=== PATIENT | female | born 1975 | race Caucasian/White ===

== ENCOUNTER 2024-05-28 16:57 | Emergency (ER) | payer OTHER ==
[2024-05-28] MEDS ORDERED: ONDANSETRON 4 MG/2 ML VIAL ONE (17:56)
[2024-05-28] MEDS ORDERED: NA CHLORIDE 0.9% 1,000 ML ONE (17:57)
[2024-05-28] MEDS ORDERED: MORPHINE 4 MG/ML SYR ONE (17:57)
[2024-05-28 18:19] LABS: Absolute Basophils 0.1 K/uL (0-0.5); Absolute Eosinophils 0.3 K/uL (0-0.5); Absolute Lymphocytes (CBC) 3.9 K/uL (0.7-4.9); Absolute Monocytes 0.5 K/uL (0.1-1.3); Absolute Neutrophil 4.8 K/uL (1.8-8.0); Eosinophils % 2.9 % (0-4.4); Hemoglobin 12.5 g/dL (12.0-15.0); Lymphocytes % 40.8 % (15.3-44.8); MCHC 33.7 g/dL (32.0-36.0); MCV 85.8 fL (80-100); MPV 7.5 fL (7.6-11.3); Monocytes % 5.4 % (3.3-12.3); Neutrophils % 49.9 % (41.7-73.7); Nucleated Red Blood Cells % 0.2 % (0-0); Platelets 339 thou/uL (152-406); RBC Red Blood Cell Count 4.31 M/uL (3.86-4.86)
[2024-05-28 18:48] LABS: Albumin 3.6 g/dL (3.4-5.0); Albumin/Globulin Ratio 1.1 (1.1-1.8); Anion Gap 7.7 mEq/L (5.0-15.0); Bilirubin Total 0.2 mg/dL (0.2-1.0); Globulin 3.3 g/dL (2.3-3.5); Potassium 3.7 mEq/L (3.5-5.1); Protein, Total 6.9 g/dL (6.4-8.2)
[2024-05-28 19:05] LABS: Specific Gravity 1.027 (1.005-1.030)
[2024-05-28 19:08] LABS: Specific Gravity 1.027 (1.005-1.030); Sqamous Epithelial <5 /HPF (None Seen); Urine Bacteria <20 /HPF (<20); Urine Bilirubin NEGATIVE (Negative); Urine Blood Trace (Negative); Urine Clarity Turbid (Clear); Urine Color Yellow (Yellow); Urine Culture Reflex Order NOT NEEDED; Urine Glucose NEGATIVE (Negative); Urine Ketones TRACE (Negative); Urine Microscopic Reflex YN ORDER UMIC; Urine Mucus Slight /HPF (None Seen); Urine Nitrite NEGATIVE (Negative); Urine Protein TRACE (Negative); Urine RBC <5 /HPF (None Seen); Urine Urobilinogen 1+ (Normal); Urine WBC <5 /HPF (<5); Urine pH 5.5 (5.0-7.0)
--- NOTE | 2024-05-28 19:39 | RAD REPORT ---
EXAM DESCRIPTION: CTAbdomen Pelvis W Contrast - 05/28/2024 7:25 pm CLINICAL HISTORY: Abdominal pain. rectal pain;Abd pain COMPARISON: No comparisons TECHNIQUE: Biphasic CT imaging of the abdomen and pelvis was performed with 100 ml non-ionic IV cont rast. All CT scans are performed using dose optimization technique as appropriate and may include automated exposure control or mA/KV adjustment according to patient size. FINDINGS: The lung bases are clear. The liver demonstrates diffuse fatty infiltration. 6 mm cyst superior aspect right lobe of the liver. Spleen, pancreas, adrenal glands and kidneys are within normal limits. No bowel obstruction, free air, free fluid or abscess. Small fat containing umbilical hernia. The seth endix is normal. No perirectal abnormality. No evidence of significant lymphadenopathy. No suspicious bony findings. IMPRESSION: No acute intra-abdominal or pelvic finding. Prominent fatty liver.
[2024-05-28] MEDS ORDERED: KETOROLAC 30 MG/ML INJ ONE (20:29)
--- NOTE | 2024-05-28 20:31 | ER ---
Nurse's Notes [facility] Name: Alisha Cleveland Age: 48 yrs Sex: Female : 1975 Arrival Date: 05/28/2024 Time: 16:57 Bed 13 Private MD: Diagnosis: Rectal Pain Presentation: 05/28 17:07 Chief complaint: Patient states: Anal fissure X 3 months - Pt saw surgeon to get it ld1 fixed, not scheduled yet. Pt c/o severe pain, denies injury. Coronavirus screen: At this time, the client does not indicate any symptoms associated with coronavirus-19. Ebola Screen: No symptoms or risks identified at this time. Initial Sepsis Screen: Does the patient meet any 2 criteria? No. Patient's initial sepsis screen is negative. Does the patient have a suspected source of infection? No. Patient's initial sepsis screen is negative. Risk Assessment: Do you want to hurt yourself or someone else? Patient reports no desire to harm self or others. Onset of symptoms was May 28, 2024. 17:07 Method Of Arrival: Ambulatory ld1 17:07 Acuity: TEVIN 3 ld1 Triage Assessment: 17:09 General: Appears in no apparent distress. uncomfortable, Behavior is cooperative, ld1 anxious. Pain: Complains of pain in gluteal cleft Pain does not radiate. Pain currently is 4 out of 10 on a pain scale. at worst was 9 out of 10 on a pain scale. Quality of pain is described as sharp, shooting, throbbing, Pain began suddenly, Is continuous. EENT: No signs and/or symptoms were reported regarding the EENT system. Neuro: Level of Consciousness is awake, alert, obeys commands, Oriented to person, place, time, situation, Appropriate for age. Cardiovascular: Capillary refill < 3 seconds Patient's skin is warm and dry. Respiratory: Airway is patent Respiratory effort is even, unlabored. GI: Abdomen is round non-distended. : No signs and/or symptoms were reported regarding the genitourinary system. Derm: No signs and/or symptoms reported regarding the dermatologic system. Musculoskeletal: No signs and/or symptoms reported regarding the musculoskeletal system. 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 - Infectious Disease History:: Denies. - Social history:: Smoking status: Patient denies any tobacco usage or history of. Screenin:12 [facility] ED Fall Risk Assessment (Adult) History of falling in the last 3 months, kc6 including since admission No falls in past 3 months (0 pts) Confusion or Disorientation No (0 pts) Intoxicated or Sedated No (0 pts) Impaired Gait No (0 pts) Mobility Assist Device Used No (0 pt) Altered Elimination No (0 pt) Score/Fall Risk Level 0 - 2 = Low Risk. Abuse screen: Denies threats or abuse. Denies injuries from another. Nutritional screening: No deficits noted. Tuberculosis screening: No symptoms or risk factors identified. Assessment: 18:12 General: Appears in no apparent distress. uncomfortable, well groomed, well developed, kc6 Behavior is calm, cooperative, appropriate for age. Pain: Complains of pain in buttocks Pain currently is 7 out of 10 on a pain scale. Neuro: Level of Consciousness is awake, alert, obeys commands, Oriented to person, place, time, situation, Appropriate for age. Cardiovascular: Capillary refill < 3 seconds. Respiratory: Airway is patent Trachea midline Respiratory effort is even, unlabored, Respiratory pattern is regular, symmetrical. GI: Abdomen is flat, non-distended, Bowel sounds present X 4 quads. Abd is soft and non tender X 4 quads. Reports rectal bleeding, bloody stool, nausea, Patient currently denies abdominal pain, vomiting. : No signs and/or symptoms were reported regarding the genitourinary system. EENT: No signs and/or symptoms were reported regarding the EENT system. Derm: No signs and/or symptoms reported regarding the dermatologic system. Skin is intact, is healthy with good turgor, Skin is pink, warm \T\ dry. Musculoskeletal: No signs and/or symptoms reported regarding the musculoskeletal system. Circulation, motion, and sensation intact. Capillary refill < 3 seconds, Range of motion: intact in all extremities. 19:05 Reassessment: Patient and/or family updated on plan of care and expected duration. Pain rg5 level reassessed. Patient is alert, oriented x 3, equal unlabored respirations, skin warm/dry/pink. 20:45 Reassessment: Patient and/or family updated on plan of care and expected duration. Pain rg5 level reassessed. Patient is alert, oriented x 3, equal unlabored respirations, skin warm/dry/pink. Patient states feeling better. Patient states symptoms have improved. Vital Signs: 17:07 BP 119 / 89; Pulse 97; Resp 18; Temp 97.5(O); Pulse Ox 99% on R/A; Weight 77.11 kg; ld1 Height 5 ft. 4 in. ; Pain 4/10; 18:13 BP 115 / 73; Pulse 80; Resp 16 S; Pulse Ox 100% on R/A; kc6 19:03 BP 115 / 77; Pulse 64; Resp 17; Temp 98; Pulse Ox 99% on R/A; rg5 20:30 BP 120 / 77; Pulse 81; Resp 17; Pulse Ox 99% on R/A; Pain 5/10; rg5 17:07 Body Mass Index 29.18 (77.11 kg, 162.56 cm) ld1 17:07 Pain Scale: Adult ld1 20:30 Pain Scale: Adult rg5 ED Course: 17:00 Patient arrived in ED. mr 17:09 Triage completed. ld1 17:09 Arm band placed on right wrist. ld1 17:15 Jose Pollard PA is PHCP. cp 17:15 Jose Lo MD is Attending Physician. cp 17:16 Nitza Del Cid, RN is Primary Nurse. kc6 18:12 Patient has correct armband on for positive identification. Placed in gown. Bed in low kc6 position. Call light in reach. Side rails up X2. Adult w/ patient. Pulse ox on. NIBP on. Door closed. Noise minimized. Lights dimmed. Warm blanket given. Pillow given. 18:12 Inserted saline lock: 20 gauge in right antecubital area, using aseptic technique. kc6 Blood collected. Flushed with 10 mL NS. 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 kc6 19:26 CT Abd/Pelvis - IV Contrast Only In Process Unspecified. EDMS 20:52 Provided Education on: ffup with GI doctor. rg5 20:53 IV discontinued. rg5 Administered Medications: 18:14 Drug: NS 0.9% IV 1000 ml IV at 1 bolus Per protocol; 1000 mL bolus Route: IV; Rate: 1 kc6 bolus; Site: right antecubital; 20:04 Follow up: Response: No adverse reaction; IV Status: Completed infusion rg5 18:14 Drug: Ondansetron IVP 4 mg IVP once; over 2 minutes Route: IVP; Site: right antecubital;kc6 20:03 Follow up: Response: No adverse reaction rg5 18:14 Drug: morphine IVP or IV 4 mg IVP once over 4 mins Route: IVP; Infused Over: 4 mins; kc6 Site: right antecubital; 19:05 Follow up: Response: No adverse reaction; Pain is decreased rg5 20:34 Drug: Ketorolac IVP 15 mg IVP once Route: IVP; Site: right antecubital; rg5 20:50 Follow up: Response: No adverse reaction; Pain is decreased rg5 Medication: 20:51 VIS not applicable for this client. rg5 Outcome: 20:31 Discharge ordered by . merlyn 20:53 Discharged to home ambulatory, rg5 20:53 Condition: stable 20:53 Discharge instructions given to patient, 20:58 Patient left the ED. rg5 Signatures: Dispatcher [employer] EDNetta Brown Reg Reg mr Page, Corey, PA PA cp Sims, Lauren, RN RN ld1 Nitza Del Cid RN RN kc6 Triston Box RN RN rg5
--- NOTE | 2024-05-28 20:31 | EDPHYS ---
Physician Documentation [facility] Name: Alisha Cleveland Age: 48 yrs Sex: Female : 1975 Arrival Date: 05/28/2024 Time: 16:57 Bed 13 Private MD: ED Physician Jose Lo HPI: 05/28 17:45 This 48 yrs old Female presents to ER via Ambulatory with complaints of Rectal Pain. cp 17:45 The patient presents to the emergency department with pain in the rectal area, that is cp severe. Onset: The symptoms/episode began/occurred 3 month(s) ago. Context: the patient HX of rectal fissure. Associate signs and symptoms: Pertinent positives: abdominal pain in the right lower quadrant, Pertinent negatives: constipation, diarrhea, fever, lower GI bleeding. 17:45 Patient reports she is scheduled for surgery with colorectal surgeon. 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 - Infectious Disease History:: Denies. - Social history:: Smoking status: Patient denies any tobacco usage or history of. ROS: 17:50 Constitutional: Negative for body aches, chills, fever, poor PO intake, cp 17:50 Eyes: Negative for injury, pain, redness, and discharge, cp 17:50 Respiratory: Negative for cough, shortness of breath, wheezing, 17:50 Abdomen/GI: Positive for abdominal pain, rectal pain, Negative for vomiting, diarrhea, constipation, rectal bleeding, 17:50 Neuro: Negative for altered mental status, headache, weakness, 17:50 All other systems are negative, Exam: 17:55 Constitutional: The patient appears in no acute distress, alert, awake, non-toxic, well cp developed, well nourished, uncomfortable, 17:55 Head/Face: Normocephalic, atraumatic. cp 17:55 Eyes: Periorbital structures: appear normal, Conjunctiva: normal, no exudate, no injection, Sclera: no appreciated abnormality, Lids and lashes: appear normal, bilaterally, 17:55 ENT: External ear(s): are unremarkable, Nose: is normal, Mouth: Lips: moist, Oral mucosa: pink and intact, moist, Posterior pharynx: is normal, airway is patent, no erythema, no exudate, 17:55 Chest/axilla: Inspection: normal, 17:55 Cardiovascular: Rate: normal, 17:55 Respiratory: the patient does not display signs of respiratory distress, Respirations: normal, no use of accessory muscles, no retractions, 17:55 Abdomen/GI: Inspection: abdomen appears normal, Bowel sounds: active, all quadrants, Palpation: soft, in all quadrants, mild abdominal tenderness, in the right lower quadrant, Rectal exam: hemorrhoid(s), external, with pain, without inflammation, without thrombosis, tenderness, that is moderate, Vital Signs: 17:07 BP 119 / 89; Pulse 97; Resp 18; Temp 97.5(O); Pulse Ox 99% on R/A; Weight 77.11 kg; ld1 Height 5 ft. 4 in. ; Pain 4/10; 18:13 BP 115 / 73; Pulse 80; Resp 16 S; Pulse Ox 100% on R/A; kc6 19:03 BP 115 / 77; Pulse 64; Resp 17; Temp 98; Pulse Ox 99% on R/A; rg5 20:30 BP 120 / 77; Pulse 81; Resp 17; Pulse Ox 99% on R/A; Pain 5/10; rg5 17:07 Body Mass Index 29.18 (77.11 kg, 162.56 cm) ld1 17:07 Pain Scale: Adult ld1 20:30 Pain Scale: Adult rg5 MDM: 17:15 Patient medically screened. 20:30 Data reviewed: vital signs, nurses notes, lab test result(s), radiologic studies, CT cp scan. 20:30 I considered the following discharge prescriptions or medication management in the emergency department Medications were administered in the Emergency Department. See MAR. Counseling: I had a detailed discussion with the patient and/or guardian regarding the historical points, exam findings, and any diagnostic results supporting the discharge/admit diagnosis, lab results, radiology results, the need for outpatient follow up, for definitive care, a colorectal specialist, to return to the emergency department if symptoms worsen or persist or if there are any questions or concerns that arise at home. Response to treatment: the patient's symptoms have markedly improved after treatment, and as a result, I will discharge patient. 05/28 17:41 Order name: CBC with Diff; Complete Time: 18:29 cp 05/28 19:42 Interpretation: Reviewed. cp 05/28 17:41 Order name: CMP; Complete Time: 19:17 cp 05/28 17:41 Order name: Lipase; Complete Time: 19:17 cp 05/28 17:41 Order name: Test, Urine; Complete Time: 19:17 cp 05/28 17:41 Order name: Urinalysis w/ reflexes; Complete Time: 19:17 cp 05/28 18:30 Order name: CT Abd/Pelvis - IV Contrast Only; Complete Time: 19:42 cp 05/28 17:41 Order name: IV Saline Lock; Complete Time: 18:08 cp 05/28 17:41 Order name: Labs collected and sent; Complete Time: 18:08 cp Administered Medications: 18:14 Drug: NS 0.9% IV 1000 ml IV at 1 bolus Per protocol; 1000 mL bolus Route: IV; Rate: 1 kc6 bolus; Site: right antecubital; 20:04 Follow up: Response: No adverse reaction; IV Status: Completed infusion rg5 18:14 Drug: Ondansetron IVP 4 mg IVP once; over 2 minutes Route: IVP; Site: right antecubital;kc6 20:03 Follow up: Response: No adverse reaction rg5 18:14 Drug: morphine IVP or IV 4 mg IVP once over 4 mins Route: IVP; Infused Over: 4 mins; kc6 Site: right antecubital; 19:05 Follow up: Response: No adverse reaction; Pain is decreased rg5 20:34 Drug: Ketorolac IVP 15 mg IVP once Route: IVP; Site: right antecubital; rg5 20:50 Follow up: Response: No adverse reaction; Pain is decreased rg5 Disposition Summary: 05/28/24 20:31 Discharge Ordered Notes: Location: Home cp Problem: an ongoing problem cp Symptoms: have improved cp Condition: Stable cp Diagnosis - Rectal Pain cp Followup: cp - With: Private Physician - When: 2 - 3 days - Reason: Recheck today's complaints Discharge Instructions: - Discharge Summary Sheet cp - Anal Fissure, Adult cp Forms: - Medication Reconciliation Form cp - Antibiotic Education cp - Prescription Opioid Use cp - Patient Portal Instructions cp - Leadership Thank You Letter cp Signatures: Dispatcher [employer] EDMS Jose Pollard PA PA cp Gabi Posey RN RN ld1 Nitza Del Cid RN RN kc6 Triston Box RN RN rg5 Corrections: (The following items were deleted from the chart) 17:42 17:42 CBC+H.LAB.BRZ ordered. EDMS EDMS 17:42 17:42 COMPREHENSIVE METABOLIC PANEL+C.LAB.BRZ ordered. EDMS EDMS 17:42 17:42 LIPASE+C.LAB.BRZ ordered. EDMS EDMS 17:42 17:42 Test, Urine+UC.LAB.BRZ ordered. EDMS EDMS 17:42 17:42 Urinalysis+U.LAB.BRZ ordered. EDMS EDMS
[2024-05-28 21:41] VITALS: O2SAT 99
[2024-05-28 21:43] VITALS: TEMP 98
[2024-05-28 21:44] VITALS: BP 120/77
== END 2024-05-28 20:58 | disposition home or self-care (01) ==
LOC: ER 16:57
DX: K62.89 Other specified diseases of anus and rectum (principal)
CPT/HCPCS: 96361; 85025; 81001; 36415; 81025; 83690; 80053; 74177; 96375; 96374; 99284; Q9967; J2405; J7030

== ENCOUNTER 2024-05-31 21:40 | Emergency (ER) | payer OTHER ==
[2024-05-31] MEDS ORDERED: HYDROMORPHONE HCL 1 MG/ML INJ ONE (23:13)
[2024-05-31] MEDS ORDERED: NA CHLORIDE 0.9% 1,000 ML ONE (23:14)
[2024-05-31 23:25] LABS: Absolute Basophils 0.1 K/uL (0-0.5); Absolute Eosinophils 0.3 K/uL (0-0.5); Absolute Lymphocytes (CBC) 4.7 K/uL (0.7-4.9); Absolute Monocytes 0.6 K/uL (0.1-1.3); Absolute Neutrophil 4.6 K/uL (1.8-8.0); Basophils % 0.5 % (0-1.3); Hematocrit 38.3 % (36.0-45.0); Hemoglobin 12.8 g/dL (12.0-15.0); Lymphocytes % 45.8 % (15.3-44.8); MCH 28.7 pg (27.0-35.0); MCHC 33.3 g/dL (32.0-36.0); MCV 86.2 fL (80-100); MPV 7.7 fL (7.6-11.3); Monocytes % 5.5 % (3.3-12.3); Neutrophils % 45.2 % (41.7-73.7); Platelets 344 thou/uL (152-406); RBC Red Blood Cell Count 4.44 M/uL (3.86-4.86); Red Cell Distribution Width 15.8 % (12.1-15.2)
[2024-05-31 23:38] LABS: Specific Gravity 1.009 (1.005-1.030)
[2024-05-31 23:39] LABS: Specific Gravity 1.009 (1.005-1.030); Urine Bilirubin NEGATIVE (Negative); Urine Blood Negative (Negative); Urine Clarity Clear (Clear); Urine Color Light-Yellow (Yellow); Urine Glucose NEGATIVE (Negative); Urine Ketones NEGATIVE (Negative); Urine Microscopic Reflex YN NO UMIC; Urine Nitrite NEGATIVE (Negative); Urine Protein NEGATIVE (Negative); Urine Urobilinogen Normal (Normal)
[2024-05-31 23:45] LABS: Albumin 3.6 g/dL (3.4-5.0); Anion Gap 7.5 mEq/L (5.0-15.0); Bilirubin Total 0.2 mg/dL (0.2-1.0); Globulin 3.6 g/dL (2.3-3.5); Potassium 3.5 mEq/L (3.5-5.1); Protein, Total 7.2 g/dL (6.4-8.2)
[2024-06-01] MEDS ORDERED: HYDROCODONE/APAP 7.5/325 MG TAB ONE (00:20)
--- NOTE | 2024-06-01 00:26 | ER ---
Nurse's Notes [facility] Name: Alisha Cleveland Age: 48 yrs Sex: Female : 1975 Arrival Date: 05/31/2024 Time: 21:40 Bed 6 Private MD: Diagnosis: Other hemorrhoids Presentation: 05/31 22:38 Chief complaint: Patient states: I have had an anal fissure for the past 3 months and jb4 the pain is worse today. It feels like something it is tearing my asshole open. Coronavirus screen: At this time, the client does not indicate any symptoms associated with coronavirus-19. Ebola Screen: No symptoms or risks identified at this time. Initial Sepsis Screen: Does the patient meet any 2 criteria? No. Patient's initial sepsis screen is negative. Does the patient have a suspected source of infection? No. Patient's initial sepsis screen is negative. Risk Assessment: Do you want to hurt yourself or someone else? Patient reports no desire to harm self or others. 22:38 Method Of Arrival: Ambulatory jb4 22:38 Acuity: TEVIN 3 jb4 Historical: - Allergies: 22:45 No Known Allergies; jb4 - PMHx: 22:45 None; jb4 - PSHx: 22:45 None; jb4 - Immunization history:: Adult Immunizations up to date. - Infectious Disease History:: Denies. - Social history:: Smoking status: Patient denies any tobacco usage or history of. Screenin:29 [facility] ED Fall Risk Assessment (Adult) History of falling in the last 3 months, cp4 including since admission No falls in past 3 months (0 pts) Confusion or Disorientation No (0 pts) Intoxicated or Sedated No (0 pts) Impaired Gait No (0 pts) Mobility Assist Device Used No (0 pt) Altered Elimination No (0 pt) Score/Fall Risk Level 0 - 2 = Low Risk Oriented to surroundings, Maintained a safe environment, Assessed \T\ reinforced patient's understanding of fall precautions, Hourly rounding (assess needs \T\ fall precautionary measures) done. Abuse screen: Denies threats or abuse. Nutritional screening: No deficits noted. Tuberculosis screening: No symptoms or risk factors identified. Assessment: 23:29 General: Appears distressed, uncomfortable, Behavior is calm, cooperative, appropriate cp4 for age. Pain: Complains of pain in rectal Pain currently is 10 out of 10 on a pain scale. Neuro: Level of Consciousness is awake, alert, obeys commands, Oriented to person, place, time, situation. Cardiovascular: No deficits noted. Respiratory: Airway is patent Respiratory effort is even, unlabored. GI: No signs and/or symptoms were reported involving the gastrointestinal system. : No signs and/or symptoms were reported regarding the genitourinary system. EENT: No signs and/or symptoms were reported regarding the EENT system. Derm: No signs and/or symptoms reported regarding the dermatologic system. Musculoskeletal: No signs and/or symptoms reported regarding the musculoskeletal system. 06/01 00:34 Reassessment: No changes from previously documented assessment. Patient and/or family vc1 updated on plan of care and expected duration. Pain level reassessed. Patient is alert, oriented x 3, equal unlabored respirations, skin warm/dry/pink. Vital Signs: 05/31 22:38 BP 127 / 94; Pulse 88; Resp 16; Temp 98.7(O); Pulse Ox 100% on R/A; Weight 77.11 kg; jb4 Height 5 ft. 4 in. (R); Pain 10; 06/01 00:34 BP 127 / 84; Pulse 75; Resp 16; Pulse Ox 100% ; vc1 05/31 22:38 Body Mass Index 29.18 (77.11 kg, 162.56 cm) jb4 05/31 22:38 Pain Scale: Adult 4 ED Course: 05/31 21:41 Patient arrived in ED. jj6 21:58 Jose Pollard PA is PHCP. cp 21:58 Neal Rascon MD is Attending Physician. cp 22:45 Triage completed. jb4 22:45 Arm band placed on right wrist. jb4 23:16 Initial lab(s) drawn, by ED staff, sent to lab. Inserted saline lock: 22 gauge in right cp4 antecubital area, using aseptic technique. Blood collected. Flushed with 10 mL NS. 23:29 Mandi Moreno is Primary Nurse. cp4 23:29 Bed in low position. Call light in reach. Side rails up X2. 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 vc1 00:38 Provided Education on: continue taking suppositories. vc1 00:38 IV discontinued, intact, bleeding controlled, No redness/swelling at site. Pressure vc1 dressing applied. Administered Medications: 05/31 23:31 Drug: NS 0.9% IV 1000 ml IV at 1 bolus Per protocol; 1000 mL bolus Route: IV; Rate: 1 cp4 bolus; Site: right antecubital; 06/01 00:37 Follow up: IV Status: Completed infusion; IV Intake: 1000ml vc1 05/31 23:31 Drug: HYDROmorphone IVP 1 mg IVP once Route: IVP; Site: right antecubital; cp4 06/01 00:15 Follow up: Response: No adverse reaction; Marked relief of symptoms; Pain is decreased vc1 00:24 Drug: Hydrocodone-Acetaminophen PO (7.5 mg-325 mg) 1 tabs PO once; RASS on ADMIN: cp4 Combtv4, Very Agttd3, Agttd2, Rstlss1, AlertClm0, Drwsy-1, Lt Sdtn-2, Mod Sdtn-3, Dp Sdtn-4, UnArsble-5 Route: PO; 00:35 Follow up: Response: Medication administered at discharge. vc1 Medication: 05/31 23:29 VIS not applicable for this client. cp4 Intake: 06/01 00:37 IV: 1000ml; Total: 1000ml. vc1 Outcome: 00:26 Discharge ordered by MD. cp 00:37 Discharged to home ambulatory, with significant other, vc1 00:37 Condition: good 00:37 Discharge instructions given to patient, Instructed on discharge instructions, follow up and referral plans. medication usage, Demonstrated understanding of instructions, follow-up care, medications, Prescriptions given X 3, 00:38 Patient left the ED. vc1 Signatures: Jose Pollard PA PA cp Bryson, James RN RN jb4 Dora [id number] Christen Judge RN RN vc1 Mandi Moreno cp4
--- NOTE | 2024-06-01 00:26 | EDPHYS ---
Physician Documentation [facility] Name: Alisha Cleveland Age: 48 yrs Sex: Female : 1975 Arrival Date: 05/31/2024 Time: 21:40 Bed 6 Private MD: ED Physician Neal Rascon HPI: 05/31 22:25 This 48 yrs old Female presents to ER via Ambulatory with complaints of Hemorrhoids, PT cp is having severe rectal pain. 22:25 The patient presents to the emergency department with pain in the rectal area, that is cp severe. Onset: The symptoms/episode began/occurred 3 month(s) ago, and became worse today. 22:25 Context: the patient HX of anal fissure and patient reports having surgery scheduled cp with colorectal surgeon. 22:25 Associate signs and symptoms: Pertinent negatives: abdominal pain, constipation, cp diarrhea, fever, lower GI bleeding, vomiting. Historical: - Allergies: 22:45 No Known Allergies; jb4 - PMHx: 22:45 None; jb4 - PSHx: 22:45 None; jb4 - Immunization history:: Adult Immunizations up to date. - Infectious Disease History:: Denies. - Social history:: Smoking status: Patient denies any tobacco usage or history of. ROS: 22:30 Constitutional: Negative for body aches, chills, fever, poor PO intake, cp 22:30 Eyes: Negative for injury, pain, redness, and discharge, cp 22:30 Cardiovascular: Negative for chest pain, palpitations, 22:30 Respiratory: Negative for cough, shortness of breath, wheezing, 22:30 Abdomen/GI: Positive for rectal pain, Negative for abdominal pain, vomiting, diarrhea, constipation, black/tarry stool, rectal bleeding, 22:30 : Negative for urinary symptoms, 22:30 All other systems are negative, Exam: 22:35 Constitutional: The patient appears in no acute distress, alert, awake, non-toxic, well cp developed, well nourished, uncomfortable, 22:35 Head/Face: Normocephalic, atraumatic. cp 22:35 Eyes: Periorbital structures: appear normal, Conjunctiva: normal, Sclera: no appreciated abnormality, Lids and lashes: appear normal, bilaterally, 22:35 ENT: External ear(s): are unremarkable, Nose: is normal, Mouth: Lips: moist, Oral mucosa: pink and intact, moist, Posterior pharynx: Airway: no evidence of obstruction, patent, 22:35 Chest/axilla: Inspection: normal, 22:35 Cardiovascular: Rate: normal, Rhythm: regular, 22:35 Respiratory: the patient does not display signs of respiratory distress, Respirations: normal, no use of accessory muscles, no retractions, labored breathing, is not present, Breath sounds: are clear throughout, no decreased breath sounds, no stridor, no wheezing, 22:35 Abdomen/GI: Inspection: abdomen appears normal, Palpation: abdomen is soft and non-tender, in all quadrants, 22:35 : Rectal exam: hemorrhoid(s), external, inflammed, painful, no active bleeding and no thrombus noted, Vital Signs: 22:38 BP 127 / 94; Pulse 88; Resp 16; Temp 98.7(O); Pulse Ox 100% on R/A; Weight 77.11 kg; jb4 Height 5 ft. 4 in. (R); Pain 10/10; 08 00:34 BP 127 / 84; Pulse 75; Resp 16; Pulse Ox 100% ; vc1 0818 22:38 Body Mass Index 29.18 (77.11 kg, 162.56 cm) jb4 05/31 22:38 Pain Scale: Adult jb4 MDM: 05/31 22:31 Patient medically screened. cp 06/01 00:25 Data reviewed: vital signs, nurses notes, lab test result(s), and as a result, I will cp discharge patient. 00:25 Differential diagnosis: hemorrhoids, fissure, abscess, pilonidal cyst. I considered the cp following discharge prescriptions or medication management in the emergency department Medications were administered in the Emergency Department. See MAR. Counseling: I had a detailed discussion with the patient and/or guardian regarding the historical points, exam findings, and any diagnostic results supporting the discharge/admit diagnosis, lab results, the need for outpatient follow up, colorectal surgery, to return to the emergency department if symptoms worsen or persist or if there are any questions or concerns that arise at home. Response to treatment: the patient's symptoms have markedly improved after treatment, and as a result, I will discharge patient. 05/31 22:22 Order name: CBC with Diff; Complete Time: 23:50 cp 05/31 22:22 Order name: CMP; Complete Time: 23:50 cp 05/31 22:22 Order name: Lipase; Complete Time: 23:50 cp 05/31 22:22 Order name: Test, Urine; Complete Time: 23:50 cp 05/31 22:22 Order name: Urinalysis w/ reflexes; Complete Time: 23:50 cp 05/31 22:22 Order name: Lactate w/ 2H reflex if indic.; Complete Time: 23:50 cp 05/31 22:22 Order name: IV Saline Lock; Complete Time: 23:16 cp 05/31 22:22 Order name: Labs collected and sent; Complete Time: 23:16 cp Administered Medications: 05/31 23:31 Drug: NS 0.9% IV 1000 ml IV at 1 bolus Per protocol; 1000 mL bolus Route: IV; Rate: 1 cp4 bolus; Site: right antecubital; 06/01 00:37 Follow up: IV Status: Completed infusion; IV Intake: 1000ml vc1 05/31 23:31 Drug: HYDROmorphone IVP 1 mg IVP once Route: IVP; Site: right antecubital; cp4 06/01 00:15 Follow up: Response: No adverse reaction; Marked relief of symptoms; Pain is decreased vc1 00:24 Drug: Hydrocodone-Acetaminophen PO (7.5 mg-325 mg) 1 tabs PO once; RASS on ADMIN: cp4 Combtv4, Very Agttd3, Agttd2, Rstlss1, AlertClm0, Drwsy-1, Lt Sdtn-2, Mod Sdtn-3, Dp Sdtn-4, UnArsble-5 Route: PO; 00:35 Follow up: Response: Medication administered at discharge. vc1 Disposition Summary: 06/01/24 00:26 Discharge Ordered Notes: Location: Home cp Problem: an ongoing problem cp Symptoms: have improved cp Condition: Stable cp Diagnosis - Other hemorrhoids cp Followup: cp - With: Private Physician - When: 2 - 3 days - Reason: Recheck today's complaints Discharge Instructions: - Discharge Summary Sheet cp - High-Fiber Eating Plan cp - Hemorrhoids cp - Surgical Procedures for Hemorrhoids cp Forms: - Medication Reconciliation Form cp - Antibiotic Education cp - Prescription Opioid Use cp - Patient Portal Instructions cp - Leadership Thank You Letter cp Prescriptions: - acetaminophen-codeine 300-30 mg Oral tablet - take 2 tablet ORAL route 2-3 times daily; 12 tablet; Refills: 0, Product cp Selection Permitted - Cipro 500 mg Oral Tablet - take 1 tablet ORAL route every 12 hours for 10 days; 20 tablet; Refills: 0, cp Product Selection Permitted - Metronidazole 500 mg Oral Tablet - take 1 tablet ORAL route every 8 hours; 30 tablet; Refills: 0, Product cp Selection Permitted Addendum: 06/02/2024 06:58 Co-signature as Attending Physician, Neal Rascon MD I reviewed the patient's care r n provided by the Advanced Practice Provider and agree with the diagnosis and treatment plan. Signatures: Dispatcher [employer] EDMS Neal Rascon MD MD rn Jose Pollard PA PA cp Bryson, James RN RN jb4 Mandi Moreno cp4 Christen Judge RN vc1 Corrections: (The following items were deleted from the chart) 05/31 22:23 22:23 CBC+H.LAB.BRZ ordered. EDMS EDMS 22:23 22:23 COMPREHENSIVE METABOLIC PANEL+C.LAB.BRZ ordered. EDMS EDMS 22:23 22:23 LIPASE+C.LAB.BRZ ordered. EDMS EDMS 22:23 22:23 Test, Urine+UC.LAB.BRZ ordered. EDMS EDMS 22:23 22:23 Urinalysis+U.LAB.BRZ ordered. EDMS EDMS 22:23 22:23 LACTATE+C.LAB.BRZ ordered. EDMS EDMS 06/01 21:18 05/31 22:25 Onset: The symptoms/episode began/occurred 3 month(s) ago, cp cp
[2024-06-01 00:56] VITALS: TEMP 98.7; O2SAT 100
[2024-06-01 01:02] VITALS: BP 127/84
== END 2024-06-01 00:38 | disposition home or self-care (01) ==
LOC: ER 21:40
DX: K64.8 Other hemorrhoids (principal)
CPT/HCPCS: 85025; 36415; 81025; 83605; 81003; 83690; 80053; J1170; J7030

== ENCOUNTER 2024-06-16 22:13 | Emergency (ER) | payer OTHER ==
[2024-06-17] MEDS ORDERED: FAMOTIDINE 20 MG/2 ML VIAL IV ONE (00:58)
[2024-06-17] MEDS ORDERED: ONDANSETRON 4 MG/2 ML VIAL ONE (00:58)
[2024-06-17] MEDS ORDERED: MORPHINE 4 MG/ML SYR ONE (00:58)
[2024-06-17] MEDS ORDERED: NA CHLORIDE 0.9% 1,000 ML ONE (00:59)
[2024-06-17 01:03] LABS: Absolute Basophils 0.1 K/uL (0-0.5); Absolute Eosinophils 0.3 K/uL (0-0.5); Absolute Lymphocytes (CBC) 4.4 K/uL (0.7-4.9); Absolute Monocytes 0.7 K/uL (0.1-1.3); Absolute Neutrophil 5.6 K/uL (1.8-8.0); Basophils % 0.7 % (0-1.3); Hemoglobin 12.3 g/dL (12.0-15.0); Lymphocytes % 39.7 % (15.3-44.8); MCH 28.7 pg (27.0-35.0); MCHC 33.2 g/dL (32.0-36.0); MCV 86.6 fL (80-100); MPV 7.7 fL (7.6-11.3); Monocytes % 6.1 % (3.3-12.3); Neutrophils % 50.5 % (41.7-73.7); Platelets 273 thou/uL (152-406); RBC Red Blood Cell Count 4.28 M/uL (3.86-4.86); Red Cell Distribution Width 15.5 % (12.1-15.2)
[2024-06-17 01:21] LABS: Specific Gravity 1.008 (1.005-1.030); Sqamous Epithelial <5 /HPF (None Seen); Urine Bacteria <20 /HPF (<20); Urine Bilirubin NEGATIVE (Negative); Urine Blood Negative (Negative); Urine Clarity Extremely Turbid (Clear); Urine Color Light-Yellow (Yellow); Urine Culture Reflex Order NOT NEEDED; Urine Glucose NEGATIVE (Negative); Urine Ketones NEGATIVE (Negative); Urine Microscopic Reflex YN ORDER UMIC; Urine Mucus Slight /HPF (None Seen); Urine Nitrite NEGATIVE (Negative); Urine Protein NEGATIVE (Negative); Urine RBC <5 /HPF (None Seen); Urine Urobilinogen Normal (Normal); Urine WBC <5 /HPF (<5); Urine pH 6.5 (5.0-7.0)
[2024-06-17 01:27] LABS: ALT/SGPT 21 U/L (13-56); Albumin 3.3 g/dL (3.4-5.0); Alkaline Phosphatase 50 U/L (45-117); BUN Blood Urea Nitrogen 9 mg/dL (7-18); Bicarbonate 28 mEq/L (21-32); Bilirubin Total 0.2 mg/dL (0.2-1.0); Globulin 3.2 g/dL (2.3-3.5); Glomerular Filtration Rate 103 ml/min (=/>90); Glucose Level 104 mg/dL (74-106); Lipase 95 U/L (13-75); Protein, Total 6.5 g/dL (6.4-8.2); Sodium Level 138 mEq/L (136-145)
[2024-06-17 01:36] LABS: AST/SGOT < 10 U/L (15-37)
--- NOTE | 2024-06-17 03:46 | ER ---
Nurse's Notes [facility] Name: Alisha Cleveland Age: 48 yrs Sex: Female : 1975 Arrival Date: 06/16/2024 Time: 22:13 Bed 4 Private MD: Diagnosis: Abdominal pain, unspecified;Abdominal tenderness-rectal pain Presentation: 06/16 23:12 Chief complaint: Patient states: Anal fissure x 4 months, on June 04 had Botox jb4 injection to anal area. Has had a fever and pain x 36hrs. Unable to sit and having for severe pain. Coronavirus screen: Vaccine status: Patient reports being unvaccinated. Ebola Screen: Patient negative for fever greater than or equal to 101.5 degrees Fahrenheit, and additional compatible Ebola Virus Disease symptoms. Initial Sepsis Screen: Does the patient meet any 2 criteria? No. Patient's initial sepsis screen is negative. Does the patient have a suspected source of infection?. Risk Assessment: Do you want to hurt yourself or someone else?. Onset of symptoms. Onset of symptoms was June 13, 2024. 23:12 Method Of Arrival: Ambulatory [facility] 23:12 Acuity: TEVIN 3 jb4 Triage Assessment: 06/17 03:55 General: Appears in no apparent distress. comfortable, Behavior is calm, cooperative, bm8 appropriate for age. GI: Reports lower abdominal pain, upper abdominal pain. BACKGROUND CHECK COORDINATOR: 03:56 LMP N/A - Hysterectomy, Not bm8 Historical: - Allergies: 06/16 23:19 No Known Allergies; jb4 - Home Meds: 23:19 Cipro 500 mg Oral tablet 1 tab 2 times per day [Active]; Ozempic 2 mg/dose (8 mg/3 mL) jb4 subcutaneous Pen Injector 2 mg every week [Active]; Adipex-P 37.5 mg oral tablet 1 tab daily [Active]; - Immunization history:: Adult Immunizations unknown. - Infectious Disease History:: Denies. - Social history:: Smoking status: unknown. Screenin/04 01:09 [facility] ED Fall Risk Assessment (Adult) History of falling in the last 3 months, bm8 including since admission No falls in past 3 months (0 pts) Confusion or Disorientation No (0 pts) Intoxicated or Sedated No (0 pts) Impaired Gait No (0 pts) Mobility Assist Device Used No (0 pt) Altered Elimination No (0 pt) Score/Fall Risk Level 0 - 2 = Low Risk Oriented to surroundings, Maintained a safe environment, Educated pt \T\ family on fall prevention, incl call for assistance when getting out of bed, Assessed \T\ reinforced patient's understanding of fall precautions, Hourly rounding (assess needs \T\ fall precautionary measures) done, Used ambulatory aids as needed (educated on \T\ assisted with), Used gait belt as appropriate. Abuse screen: Denies threats or abuse. Nutritional screening: No deficits noted. Tuberculosis screening: No symptoms or risk factors identified. Assessment: 01:09 Reassessment: Patient and/or family updated on plan of care and expected duration. Pain bm8 level reassessed. Patient is alert, oriented x 3, equal unlabored respirations, skin warm/dry/pink. Pain: Complains of pain in right lower quadrant and right upper quadrant and rectum Pain currently is 6 out of 10 on a pain scale. Neuro: No deficits noted. Level of Consciousness is awake, alert, obeys commands, Oriented to person, place, time, situation, Appropriate for age. Cardiovascular: Denies chest pain, Capillary refill < 3 seconds Patient's skin is warm and dry. Respiratory: Airway is patent Respiratory effort is even, labored, Respiratory pattern is regular, symmetrical, Breath sounds are clear bilaterally. GI: Abdomen is flat, non-distended, Abdomen is tender to palpation in right upper quadrant and right lower quadrant Reports lower abdominal pain, upper abdominal pain, nausea. : No signs and/or symptoms were reported regarding the genitourinary system. EENT: No signs and/or symptoms were reported regarding the EENT system. Derm: No signs and/or symptoms reported regarding the dermatologic system. Musculoskeletal: No signs and/or symptoms reported regarding the musculoskeletal system. 03:10 Reassessment: Patient appears in no apparent distress at this time. Patient and/or bm8 family updated on plan of care and expected duration. Pain level reassessed. Patient is alert, oriented x 3, equal unlabored respirations, skin warm/dry/pink. pt reports that pain and nausea are starting to come back. informed and awaitng new orders. 03:54 Reassessment: Patient appears in no apparent distress at this time. Patient and/or bm8 family updated on plan of care and expected duration. Pain level reassessed. Patient is alert, oriented x 3, equal unlabored respirations, skin warm/dry/pink. Patient states feeling better. Patient states symptoms have improved. Pain: Complains of pain in rectum Pain currently is 2 out of 10 on a pain scale. Vital Signs: 06/16 23:12 BP 136 / 75; Pulse 77; Resp 18; Temp 98.9; Pulse Ox 100% ; Weight 78.02 kg; Height 5 jb4 ft. 4 in. ; Pain /; 06/17 01:09 BP 119 / 72; Pulse 76; Resp 17; Temp 97.9; Pulse Ox 100% ; Pain 6/10; bm8 03:10 BP 115 / 85; Pulse 82; Resp 17; Temp 97.8; Pulse Ox 100% ; Pain 6/10; bm8 03:54 BP 123 / 77; Pulse 84; Resp 16; Temp 97.9; Pulse Ox 100% ; Pain 2/10; bm8 06/16 23:12 Body Mass Index 29.52 (78.02 kg, 162.56 cm) [facility] 06/16 23:12 Pain Scale: Adult 4 06/17 01:09 Pain Scale: Adult bm8 03:10 Pain Scale: Adult bm8 03:54 Pain Scale: Adult bm8 Oniel Coma Score: 01:09 Eye Response: spontaneous(4). Motor Response: obeys commands(6). Verbal Response: bm8 oriented(5). Total: 15. 03:10 Eye Response: spontaneous(4). Motor Response: obeys commands(6). Verbal Response: bm8 oriented(5). Total: 15. 03:54 Eye Response: spontaneous(4). Motor Response: obeys commands(6). Verbal Response: bm8 oriented(5). Total: 15. ED Course: 06/16 22:15 Patient arrived in ED. mr 23:18 Triage completed. jb4 23:35 Jose Lo MD is Attending Physician. [facility] 06/17 00:46 Marck Choi, RN is Primary Nurse. bm8 01:09 Patient has correct armband on for positive identification. Placed in gown. Bed in low bm8 position. Call light in reach. Side rails up X 1. Adult w/ patient. Client placed on continuous cardiac and pulse oximetry monitoring. NIBP monitoring applied. pot room tapper on. Pulse ox on. NIBP on. Door closed. Noise minimized. Warm blanket given. Pillow given. Verbal reassurance given. Head of bed elevated. 01:09 No provider procedures requiring assistance completed. Initial lab(s) drawn, by ashlee contreras sent to lab. Urine collected: clean catch specimen, cloudy. Inserted saline lock: 20 gauge in right antecubital area, using aseptic technique. Blood collected. Flushed with 10 mL NS. Patient maintains SpO2 saturation greater than 95% on room air. 01:10 Chest Single View XRAY In Process Unspecified. EDMS 02:03 CT Abd/Pelvis - IV Contrast Only In Process Unspecified. EDMS 03:54 Provided Education on: post er care. bm8 03:54 IV discontinued, intact, bleeding controlled, No redness/swelling at site. Pressure bm8 dressing applied. 03:56 Arm band placed on. bm8 Administered Medications: 01:08 Drug: NS 0.9% IV 1000 ml IV at 1 bolus Per protocol; 1000 mL bolus Route: IV; Rate: 1 bm8 bolus; Site: right antecubital; 03:56 Follow up: Response: No adverse reaction; IV Status: Completed infusion; IV Intake: bm8 1000ml 01:08 Drug: Famotidine IVP 20 mg IVP once; dilute with 10 mL 0.9% NaCl; give over 2 minutes bm8 Route: IVP; Site: right antecubital; 03:56 Follow up: Response: No adverse reaction bm8 01:08 Drug: Ondansetron IVP 4 mg IVP once; over 2 minutes Route: IVP; Site: right antecubital;bm8 03:57 Follow up: Response: No adverse reaction bm8 01:08 Drug: morphine IVP or IV 4 mg IVP once over 4 mins Route: IVP; Infused Over: 4 mins; bm8 Site: right antecubital; 03:57 Follow up: Response: No adverse reaction bm8 Medication: 01:09 VIS not applicable for this client. bm8 Intake: 03:56 IV: 1000ml; Total: 1000ml. bm8 Outcome: 03:46 Discharge ordered by MD. oconnor 03:54 Discharged to home ambulatory, bm8 03:54 Condition: stable 03:54 Discharge instructions given to patient, family, Instructed on discharge instructions, follow up and referral plans. no drinking with medication, no driving heavy equipment, medication usage, safety practices, Demonstrated understanding of instructions, follow-up care, medications, Prescriptions given X 3, 03:57 Patient left the ED. bm8 Signatures: Dispatcher [employer] EDJose Wilson MD MD cha Rivera, Mary, Reg Reg mr Randell Laws, RN RN jb4 Marck Choi RN RN bm8
--- NOTE | 2024-06-17 03:47 | EDPHYS ---
Physician Documentation [facility] Name: Alisha Cleveland Age: 48 yrs Sex: Female : 1975 Arrival Date: 06/16/2024 Time: 22:13 Bed 4 Private MD: GONZÁLEZ Physician Jose Lo HPI: 06/17 00:29 This 48 yrs old Female presents to ER via Ambulatory with complaints of Post anastasia Surgical Pain, Nausea, Fever. 00:29 The patient presents to the emergency department with nausea, abdominal pain, of the anastasia right upper quadrant and right lower quadrant. Onset: The symptoms/episode began/occurred 2 day(s) ago. Possible causes: unknown. The symptoms are aggravated by pressure, The symptoms are alleviated by nothing. Associated signs and symptoms: Pertinent positives: abdominal pain. Severity of symptoms: At their worst the symptoms were mild moderate in the emergency department the symptoms are unchanged. 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 - Infectious Disease History:: Denies. - Social history:: Smoking status: unknown. ROS: 06/17 00:40 Constitutional: Negative for fever, chills, and weight loss, Eyes: Negative for injury, anastasia pain, redness, and discharge, ENT: Negative for injury, pain, and discharge, Neck: Negative for injury, pain, and swelling, Cardiovascular: Negative for chest pain, palpitations, and edema, Respiratory: Negative for shortness of breath, cough, wheezing, and pleuritic chest pain, Back: Negative for injury and pain, : Negative for injury, bleeding, discharge, and swelling, MS/Extremity: Negative for injury and deformity, Skin: Negative for injury, rash, and discoloration, Neuro: Negative for headache, weakness, numbness, tingling, and seizure, Psych: Negative for depression, anxiety, suicide ideation, homicidal ideation, and hallucinations, Allergy/Immunology: Negative for hives, rash, and allergies, Endocrine: Negative for neck swelling, polydipsia, polyuria, polyphagia, and marked weight changes, Hematologic/Lymphatic: Negative for swollen nodes, abnormal bleeding, and unusual bruising, Abdomen/GI: Positive for abdominal pain, abdominal cramps, of the right upper quadrant and right lower quadrant, Exam: 00:40 Constitutional: This is a well developed, well nourished patient who is awake, alert, anastasia and in no acute distress. Head/Face: Normocephalic, atraumatic. Eyes: Pupils equal round and reactive to light, extra-ocular motions intact. Lids and lashes normal. Conjunctiva and sclera are non-icteric and not injected. Cornea within normal limits. Periorbital areas with no swelling, redness, or edema. ENT: Nares patent. No nasal discharge, no septal abnormalities noted. Tympanic membranes are normal and external auditory canals are clear. Oropharynx with no redness, swelling, or masses, exudates, or evidence of obstruction, uvula midline. Mucous membranes moist. Neck: Trachea midline, no thyromegaly or masses palpated, and no cervical lymphadenopathy. Supple, full range of motion without nuchal rigidity, or vertebral point tenderness. No Meningismus. Chest/axilla: Normal chest wall appearance and motion. Nontender with no deformity. No lesions are appreciated. Cardiovascular: Regular rate and rhythm with a normal S1 and S2. No gallops, murmurs, or rubs. Normal PMI, no JVD. No pulse deficits. Respiratory: Lungs have equal breath sounds bilaterally, clear to auscultation and percussion. No rales, rhonchi or wheezes noted. No increased work of breathing, no retractions or nasal flaring. Back: No spinal tenderness. No costovertebral tenderness. Full range of motion. Pelvic Exam: Normal external genitalia. Speculum exam with closed cervical os, no discharge or bleeding noted. Bimanual exam with normal adnexa, no adnexal or cervical motion tenderness. Normal uterus. Female : Normal external genitalia. Skin: Warm, dry with normal turgor. Normal color with no rashes, no lesions, and no evidence of cellulitis. MS/ Extremity: Pulses equal, no cyanosis. Neurovascular intact. Full, normal range of motion. Neuro: Awake and alert, GCS 15, oriented to person, place, time, and situation. Cranial nerves II-XII grossly intact. Motor strength 5/5 in all extremities. Sensory grossly intact. Cerebellar exam normal. Normal gait. Psych: Awake, alert, with orientation to person, place and time. Behavior, mood, and affect are within normal limits. 00:40 Abdomen/GI: Inspection: abdomen appears normal, Bowel sounds: normal, Palpation: mild abdominal tenderness, in the right upper quadrant and right lower quadrant, Liver: no appreciated palpable abnormalities, Hernia: not appreciated, 00:40 Musculoskeletal/extremity: ROM: no acute changes, intact in all extremities, Circulation is intact in all extremities. Sensation intact. Compartment Syndrome exam of affected extremity: is normal. Joints: All joints appear normal with full range of motion. Weight bearing: able to fully bear weight, Tendon exam: specific tendon testing normal through active and passive range of motion DVT Exam: No signs of deep vein thrombosis. no pain, no swelling, no tenderness, negative Homans' sign noted on exam, no appreciated bluish discoloration, no erythema, no increased warmth, Vital Signs: 06/16 23:12 BP 136 / 75; Pulse 77; Resp 18; Temp 98.9; Pulse Ox 100% ; Weight 78.02 kg; Height 5 jb4 ft. 4 in. ; Pain /; 06/17 01:09 BP 119 / 72; Pulse 76; Resp 17; Temp 97.9; Pulse Ox 100% ; Pain 6/10; bm8 03:10 BP 115 / 85; Pulse 82; Resp 17; Temp 97.8; Pulse Ox 100% ; Pain 6/10; bm8 03:54 BP 123 / 77; Pulse 84; Resp 16; Temp 97.9; Pulse Ox 100% ; Pain 2/10; bm8 06/16 23:12 Body Mass Index 29.52 (78.02 kg, 162.56 cm) jb4 06/16 23:12 Pain Scale: Adult jb4 06/17 01:09 Pain Scale: Adult bm8 03:10 Pain Scale: Adult bm8 03:54 Pain Scale: Adult bm8 [place] Coma Score: 01:09 Eye Response: spontaneous(4). Motor Response: obeys commands(6). Verbal Response: bm8 oriented(5). Total: 15. 03:10 Eye Response: spontaneous(4). Motor Response: obeys commands(6). Verbal Response: bm8 oriented(5). Total: 15. 03:54 Eye Response: spontaneous(4). Motor Response: obeys commands(6). Verbal Response: bm8 oriented(5). Total: 15. MDM: 06/16 23:35 Patient medically screened. [facility] 06/17 00:41 Differential diagnosis: Nonspecific abd pain, gastritis, cholecystitis, pancreatitis, anastasia appendicitis, diverticulitis, viral gastroenteritis, gastroenteritis. Data reviewed: vital signs, nurses notes, lab test result(s), radiologic studies, CT scan, plain films. Consideration of Admission/Observation Escalation of care including admission/observation considered. I considered the following discharge prescriptions or medication management in the emergency department Medications were administered in the Emergency Department. See MAR. Test considered but Not performed: Ultrasound no abd usg. Historians other than the Patient: Family Member: family well informed. Care significantly affected by the following chronic conditions: Obesity, anal fissures, sp botox. 06/17 00:39 Order name: CBC with Diff; Complete Time: 01:34 [facility] 06/17 00:39 Order name: CMP; Complete Time: 02:37 [facility] 06/17 00:39 Order name: Lipase; Complete Time: 02:37 [facility] 06/17 00:39 Order name: Urinalysis w/ reflexes; Complete Time: 01:34 [facility] 06/17 00:39 Order name: CT Abd/Pelvis - IV Contrast Only [facility] 06/17 00:39 Order name: Chest Single View XRAY [facility] 06/17 00:39 Order name: IV Saline Lock; Complete Time: 01:09 [facility] 06/17 00:39 Order name: Labs collected and sent; Complete Time: 01:09 [facility] Administered Medications: 01:08 Drug: NS 0.9% IV 1000 ml IV at 1 bolus Per protocol; 1000 mL bolus Route: IV; Rate: 1 bm8 bolus; Site: right antecubital; 03:56 Follow up: Response: No adverse reaction; IV Status: Completed infusion; IV Intake: bm8 1000ml 01:08 Drug: Famotidine IVP 20 mg IVP once; dilute with 10 mL 0.9% NaCl; give over 2 minutes bm8 Route: IVP; Site: right antecubital; 03:56 Follow up: Response: No adverse reaction bm8 01:08 Drug: Ondansetron IVP 4 mg IVP once; over 2 minutes Route: IVP; Site: right antecubital;bm8 03:57 Follow up: Response: No adverse reaction bm8 01:08 Drug: morphine IVP or IV 4 mg IVP once over 4 mins Route: IVP; Infused Over: 4 mins; bm8 Site: right antecubital; 03:57 Follow up: Response: No adverse reaction bm8 Disposition Summary: 06/17/24 03:46 Discharge Ordered Notes: Location: Home anastasia Problem: new anastasia Symptoms: have improved anastasia Condition: Stable anastasia Diagnosis - Abdominal pain, unspecified anastasia - Abdominal tenderness - rectal pain anastasia Followup: anastasia - With: Private Physician - When: 2 - 3 days - Reason: Recheck today's complaints, Continuance of care, Re-evaluation by your physician Discharge Instructions: - Discharge Summary Sheet anastasia - Abdominal Pain, Adult anastasia - Flank Pain, Adult anastasia - Abdominal Pain, Adult, [id number] [facility] Forms: - Medication Reconciliation Form [facility] - Antibiotic Education anastasia - Prescription Opioid Use anastasia - Patient Portal Instructions [facility] - Leadership Thank You Letter [facility] Prescriptions: - Zofran 4 mg Oral Tablet - take 1 tablet ORAL route every 12 hours As needed; 20 tablet; Refills: 0, [facility] Product Selection Permitted - Cipro 500 mg Oral tablet - take 1 tablet ORAL route every 12 hours for 7 days; 10 tablet; Refills: 0, [facility] Product Selection Permitted - dicyclomine 20 mg Oral tablet - take 1 tablet ORAL route 4 times per day; 28 tablet; Refills: 0, Product [facility] Selection Permitted Signatures: Dispatcher [employer] EDJose Wilson MD MD cha Bryson, James, RN RN jb4 Marck Choi, RN RN bm8 Corrections: (The following items were deleted from the chart) 00:39 00:39 Abdomen Pelvis W Con+CT.RAD.BRZ ordered. EDMS EDMS 00:39 00:39 Chest Single View+RAD.RAD.BRZ ordered. EDMS EDMS
[2024-06-17 04:45] VITALS: O2SAT 100
[2024-06-17 04:50] VITALS: BP 123/77; TEMP 97.9
--- NOTE | 2024-06-17 15:47 | RAD REPORT ---
EXAM DESCRIPTION: CT ABDOMEN PELVIS WITH IV CONTRAST CLINICAL HISTORY: Abdominal pain COMPARISON: CT abdomen and pelvis 05/28/2024 TECHNIQUE: CT images of the abdomen and pelvis obtained following adminstration of intravenous contr ast. Multiplanar reformats were provided. Dose-optimization techniques such as automated exposure con trol, iterative reconstruction, and mA and/or kV adjustment for patient size was utilized for this ex amination. FINDINGS: LOWER CHEST: Unremarkable. LIVER: Small 5 mm ovoid hypoattenuating structure in right hepatic lobe is too small to characterize and possibly a cyst. The liver is prominent in size with fatty change. BILIARY: Unremarkable. PANCREAS: Unremarkable. SPLEEN: Unremarkable. ADRENALS: Unremarkable. KIDNEYS/URETERS: Unremarkable. BOWEL/STOMACH: No focal bowel wall thickening or dilatation. No bowel obstruction. Normal appendix. MESENTERY/PERITONEUM: Unremarkable. RETROPERITONEUM: No adenopathy. URINARY BLADDER: Unremarkable. REPRODUCTIVE: Unremarkable. VASCULAR: Unremarkable. ABDOMINAL/PELVIC WALL: Tiny fat containing umbilical hernia. BONES: Unremarkable. IMPRESSION: No acute inflammatory changes in the abdomen and pelvis. Electronically signed by: Demetra Chinchilla MD 06/17/2024 03:41 AM CDT Due to temporary technical issues with the PACS/[employer] reporting system, reports are being signed by the in house radiologist without review as a courtesy to ensure prompt reporting. The interpreting r adiologist is fully responsible for the content of the report.
--- NOTE | 2024-06-17 15:48 | RAD REPORT ---
EXAM DESCRIPTION: Chest Single View CLINICAL HISTORY: FEVER COMPARISON: None FINDINGS: Cardiac silhouette is within normal limits. There is no focal parenchymal or pleural disea se. There is no acute osseous process visualized. IMPRESSION: No evidence of acute cardiopulmonary disease. Electronically signed by: Osiel Soares MD 06/17/2024 02:33 AM CDT RP Due to temporary technical issues with the PACS/[employer]ency reporting system, reports are being signed by the in house radiologist without review as a courtesy to ensure prompt reporting. The interpreting r adiologist is fully responsible for the content of the report.
== END 2024-06-17 03:57 | disposition home or self-care (01) ==
LOC: ER 22:13
DX: R10.11 Right upper quadrant pain (principal); R10.813 Right lower quadrant abdominal tenderness; K62.89 Other specified diseases of anus and rectum
CPT/HCPCS: 96361; 85025; 81001; 36415; 83690; 80053; 74177; 71045; 96375; 96374; 99285; Q9967; J2405; J7030

== ENCOUNTER 2024-09-13 00:25 | Inpatient (IN) | payer OTHER ==
[2024-09-13 02:33] LABS: Absolute Basophils 0.1 K/uL (0-0.5); Absolute Eosinophils 0.1 K/uL (0-0.5); Absolute Lymphocytes (CBC) 1.8 K/uL (0.7-4.9); Absolute Monocytes 1.3 K/uL (0.1-1.3); Absolute Neutrophil 9.9 K/uL (1.8-8.0); Basophils % 0.6 % (0-1.3); Eosinophils % 0.8 % (0-4.4); Hematocrit 33.6 % (36.0-45.0); Hemoglobin 11.2 g/dL (12.0-15.0); Lymphocytes % 13.6 % (15.3-44.8); MCH 26.6 pg (27.0-35.0); MCHC 33.3 g/dL (32.0-36.0); MCV 79.8 fL (80-100); MPV 7.6 fL (7.6-11.3); Monocytes % 10.1 % (3.3-12.3); Neutrophils % 74.9 % (41.7-73.7); Nucleated Red Blood Cells % 0.2 % (0-0); Platelets 292 thou/uL (152-406); RBC Red Blood Cell Count 4.21 M/uL (3.86-4.86); Red Cell Distribution Width 15.5 % (12.1-15.2)
[2024-09-13 02:51] LABS: ALT/SGPT 15 U/L (13-56); Albumin 3.2 g/dL (3.4-5.0); Alkaline Phosphatase 60 U/L (45-117); Anion Gap 8.5 mEq/L (5.0-15.0); BUN Blood Urea Nitrogen 11 mg/dL (7-18); Bicarbonate 25 mEq/L (21-32); Bilirubin Total 0.3 mg/dL (0.2-1.0); Globulin 3.3 g/dL (2.3-3.5); Glomerular Filtration Rate 79 ml/min (=/>90); Glucose Level 114 mg/dL (74-106); Lipase 42 U/L (13-75); Potassium 3.5 mEq/L (3.5-5.1); Protein, Total 6.5 g/dL (6.4-8.2); Sodium Level 135 mEq/L (136-145)
[2024-09-13] MEDS ORDERED: CEFTRIAXONE 1000 MG/VIAL ONE (02:51)
[2024-09-13] MEDS ORDERED: NA CHLORIDE 0.9% 2,000 ML ONE (02:52)
[2024-09-13] MEDS ORDERED: ACETAMINOPHEN 500 MG TAB ONE (02:52)
[2024-09-13] MEDS ORDERED: MORPHINE 4 MG/ML SYR ONE (02:52)
[2024-09-13] MEDS ORDERED: KETOROLAC 30 MG/ML INJ ONE (02:52)
[2024-09-13] MEDS ORDERED: METRONIDAZOLE 500mg IVPB 500 MG/100 ML BAG IV ONE (02:53)
[2024-09-13] MEDS ORDERED: NA CHLORIDE 0.9% 50 ML ONE (02:53)
[2024-09-13 03:14] LABS: AST/SGOT < 10 U/L (15-37)
[2024-09-13 04:16] LABS: Specific Gravity 1.011 (1.005-1.030); Sqamous Epithelial <5 /HPF (None Seen); Urine Bacteria <20 /HPF (<20); Urine Bilirubin NEGATIVE (Negative); Urine Blood Negative (Negative); Urine Clarity Turbid (Clear); Urine Color Colorless (Yellow); Urine Crystals Unidentified Few /HPF (None Seen); Urine Culture Reflex Order NOT NEEDED; Urine Glucose NEGATIVE (Negative); Urine Ketones NEGATIVE (Negative); Urine Micro Reflex YN NO BILL MICROSCOPIC; Urine Nitrite NEGATIVE (Negative); Urine Protein NEGATIVE (Negative); Urine RBC <5 /HPF (None Seen); Urine Urobilinogen Normal (Normal); Urine pH 7.5 (5.0-7.0)
[2024-09-13] MEDS ORDERED: VANCOMYCIN 1 GM/VIAL ONE (05:08)
[2024-09-13] MEDS ORDERED: VANCOMYCIN 500 MG/VIAL ONE (05:08)
[2024-09-13] MEDS ORDERED: NA CHLORIDE 0.9% 1,000 ML ONE (05:08)
[2024-09-13] MEDS ORDERED: D5 0.9 NS 1,000 ML IV ONE (05:09)
[2024-09-13] MEDS ORDERED: NA CHLORIDE 0.9% 250 ML ONE (05:10)
--- NOTE | 2024-09-13 05:15 | RAD REPORT ---
EXAM: CT Abdomen and Pelvis Without Intravenous Contrast CLINICAL HISTORY: Abd pain. TECHNIQUE: Axial computed tomography images of the abdomen and pelvis without intravenous contrast. Sagittal a nd coronal reformatted images were created and reviewed. This CT exam was performed using one or more of the following dose reduction techniques: automated exposure control, adjustment of the mA a nd/or kV according to patient size, and/or use of iterative reconstruction technique. COMPARISON: CT Abdomen Pelvis 06/17/2024 (report only). FINDINGS: Lung bases: Left lower lobe calcified granuloma. No mass. No consolidation. ABDOMEN: Liver: The liver is diffusely low in density compatible with steatosis. Subcentimeter right hepatic dome hypodensity which cannot be fully characterized. Gallbladder and bile ducts: Unremarkable. No calcified stones. No ductal dilation. Pancreas: Unremarkable. No ductal dilation. Spleen: Unremarkable. No splenomegaly. Adrenals: Unremarkable. No mass. Kidneys and ureters: Minimal perinephric stranding on the right. No calculi. No hydronephrosis. Stomach and bowel: Moderate stool in the proximal to mid large bowel. No obstruction. No mucosal th ickening. PELVIS: Appendix: Normal caliber appendix. No findings to suggest acute appendicitis. Bladder: Mild to moderate urinary bladder wall thickening. Infiltrative changes in the perivesical fat. No stones. Reproductive: 1.9 cm left ovarian cyst. The uterus and right ovary are unremarkable as visualized. ABDOMEN and PELVIS: Intraperitoneal space: Unremarkable. No free air. No significant fluid collection. Bones/joints: Multilevel spondylosis. No acute fracture. No dislocation. Soft tissues: Unremarkable. Vasculature: Unremarkable. No abdominal aortic aneurysm. Lymph nodes: Unremarkable. No enlarged lymph nodes. IMPRESSION: 1. Findings suggestive of cystitis. Minimal perinephric stranding on the right, possible pyelonephr itis. 2. A 1.9 cm left ovarian cyst. No follow-up imaging is recommended. Reference: JACR 2019;17(2): 248-254 3. Other findings as above. Electronically signed by: Socrates Wills MD 09/13/2024 02:43 AM [facility] Due to temporary technical issues with the PACS/[employer] reporting system, reports are being angelic d by the in-house radiologist without review as a courtesy to ensure prompt reporting the interpreting radiologist is fully responsible for the content of the report. Transcribed Date/Time: 09/13/2024 6:37 AM
--- NOTE | 2024-09-13 05:49 | P.HP ---
Certification for Inpatient Patient admitted to: Inpatient With expected LOS: <2 Midnights Practitioner: I am a practitioner with admitting privileges, knowledge of patient current condition, hospital course, and medical plan of care. Services: Services provided to patient in accordance with Admission requirements found in Title 42 Section 412.3 of the Code of Federal Regulations Patient History Date of Service: 09/13/24 Reason for admission: pyelonephritis History of Present Illness: 48-year-old woman with no significant past medical history presented to the emergency department complaining of dysuria, fever at home, and abdominal pain x 2 weeks. The patient states that her symptoms have gotten progressively worse over the past 2 weeks, and today she had a fever at home of 103 degrees. The patient states that she took Tylenol to improve her fever and abdominal pain, but reports minimal improvement. Also, the patient states she now has urinary frequency with her dysuria that began today. She describes her abdominal pain as located in the right lower quadrant, with radiation to the back, and of an aching quality. The patient is a current smoker. She denies cough, dyspnea, and urinary urgency. Allergies No Known Allergies Allergy (Unverified 12/31/11 15:06) Home medications list reviewed: Yes (ozempic only) - Past Medical/Surgical History Diabetic: No Past Medical History: Patient denies medical history -: x3 - Family History Family History: Reviewed- Non-Contributory - Social History Smoking Status: Current every day smoker (7 packs/week) Counseled patient to stop smoking for: less than 10 minutes Alcohol use: No Review of Systems General: Fever (103 at home) Gastrointestinal: Nausea, Abdominal Pain, No Distention Genitourinary: Dysuria, Frequency Physical Examination - Vital Signs Temperature: 99.7 F Blood Pressure: 116/68 Pulse: 101 Respirations: 18 Pulse Ox (%): 100 (room air) - Physical Exam General: Alert, Oriented x3 HEENT: Atraumatic, Normocephalic Neck: JVD not distended Respiratory: Clear to auscultation bilaterally Cardiovascular: No edema, No gallops, No rubs, No murmurs, Other (tachycardic, rate of 101) Gastrointestinal: Normal bowel sounds, Non-distended, Tenderness (rlq tenderness with radiation to back) Musculoskeletal: No swelling, No erythema, No warmth Neurological: Normal strength at 5/5 x4 extr, Sensation intact - Studies Laboratory Data (last 24 hrs) 09/13/24 09/13/24 02:19 02:19 WBC 13.20 H Hgb 11.2 L Hct 33.6 L Plt Count 292 Sodium 135 L Potassium 3.5 BUN 11 Creatinine 0.91 Glucose 114 H Total Bilirubin 0.3 AST < 10 L ALT 15 Alkaline Phosphatase 60 Lipase 42 Microbiology Data (last 24 hrs): 09/13/24 04:57 Nasopharnyx Influenza Type A Antigen Screen - Final 09/13/24 04:57 Nasopharnyx Influenza Type B Antigen Screen - Final Assessment and Plan - Problems (Diagnosis) (1) Pyelonephritis Current Visit: Yes Status: Acute (2) Encounter for smoking cessation counseling Current Visit: Yes Status: Acute - Plan Pyelonephritis: Admit to floor NPO diet Morphine ordered Tylenol for fever/pain ordered Zofran ordered IVF ordered Given Tylenol, Toradol, morphine, Rocephin, Flagyl, vancomycin, and IVF in ED CT A/P revealed cystitis versus pyelonephritis suggestion, ovarian cyst Smoking cessation: The patient has been counseled on the importance of smoking cessation. She voiced understanding, and all her questions were answered to her satisfaction - Advance Directives Does patient have a Living Will: No Does patient have a Durable POA for Healthcare: No
--- NOTE | 2024-09-13 06:39 | EDPHYS ---
Physician Documentation [facility] Name: Alisha Cleveland Age: 48 yrs Sex: Female : 1975 Arrival Date: 09/13/2024 Time: 00:25 Bed 16 Private MD: ED Physician Jayesh Aldrich HPI: 09/13 00:50 This 48 yrs old Female presents to ER via Unassigned with complaints of Pain sp4 With Urination, Fever. 19:00 48-year-old presents with fever back pain and dysuria, patient reported fever back pain sp4 and dysuria for the past 4 days. 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 - Infectious Disease History:: Denies. - Social history:: Smoking status: Patient denies any tobacco usage or history of. - Family history:: not pertinent. ROS: 19:01 Constitutional: Positive for fever, positive for back pain and dysuria sp4 19:01 All other systems are negative, Exam: 19:01 Constitutional: This is a well developed, well nourished patient who is awake, alert, sp4 and in no acute distress. Head/Face: Normocephalic, atraumatic. Eyes: Pupils equal round and reactive to light, extra-ocular motions intact. Lids and lashes normal. Conjunctiva and sclera are not injected. Cornea within normal limits. Periorbital areas with no swelling, redness, or edema. ENT: Nares patent. No nasal discharge, no septal abnormalities noted. Tympanic membranes are normal and external auditory canals are clear. Oropharynx with no redness, swelling, or masses, exudates, or evidence of obstruction, uvula midline. Mucous membranes moist. Neck: Trachea midline, no thyromegaly or masses palpated, and no cervical lymphadenopathy. Supple, full range of motion without nuchal rigidity, or vertebral point tenderness. Chest/axilla: Normal chest wall appearance and motion. Nontender with no deformity. No lesions are appreciated. Cardiovascular: Regular rate and rhythm with a normal S1 and S2. No gallops, murmurs, or rubs. Normal PMI, no JVD. No pulse deficits. Respiratory: Lungs have equal breath sounds bilaterally, clear to auscultation and percussion. No rales, rhonchi or wheezes noted. No increased work of breathing, no retractions or nasal flaring. Abdomen/GI: Soft, with normal bowel sounds. No distension or tympany. No guarding or rebound. No evidence of tenderness throughout. Back: No spinal tenderness. No costovertebral tenderness. Skin: Warm, dry with normal turgor. Normal color with no rashes, no lesions, and no evidence of cellulitis. MS/ Extremity: Pulses equal, no cyanosis. Neurovascular intact. Full, normal range of motion. Neuro: Awake and alert, GCS 15, oriented to person, place, time, and situation. Cranial nerves II-XII grossly intact. Motor strength 5/5 in all extremities. Sensory grossly intact. Psych: Awake, alert, with orientation to person, place and time. Behavior, mood, and affect are within normal limits Vital Signs: 02:03 BP 113 / 55; Pulse 101; Resp 16; Temp 99.7(O); Pulse Ox 98% on R/A; Weight 74.84 kg; dd2 04:31 BP 94 / 46; Pulse 87; Resp 15; Temp 98.8(O); Pulse Ox 99% on R/A; dd2 05:19 BP 116 / 68; Pulse 89; Resp 16; Pulse Ox 98% on R/A; dd2 06:37 BP 101 / 60; Pulse 92; Resp 16; Pulse Ox 98% on R/A; dd2 07:15 BP 101 / 60; Pulse 84; Resp 16; Pulse Ox 99% ; ko1 [place] Coma Score: 02:45 Eye Response: spontaneous(4). Motor Response: obeys commands(6). Verbal Response: dd2 oriented(5). Total: 15. 19:01 Eye Response: spontaneous(4). Motor Response: obeys commands(6). Verbal Response: sp4 oriented(5). Total: 15. MDM: 00:53 Medical Screening Exam initiated sp4 03:23 ED course: EXAM: CTAbdomen and Pelvis Without Intravenous Contrast CLINICAL HISTORY: sp4 Abd pain. TECHNIQUE: Axial computed tomography images of the abdomen and pelvis without intravenous contrast. Sagittal and coronal reformatted images were created and reviewed. This CT exam was performed using one or more of the following dose reduction techniques: automated exposure control, adjustment of the mA and/or kV according to patient size, and/or use of iterative reconstruction technique. COMPARISON: CTAbdomen Pelvis 06/17/2024 (report only). FINDINGS: Lung bases: Left lower lobe calcified granuloma. No mass. No consolidation. ABDOMEN: Liver: The liver is diffusely low in density compatible with steatosis. Subcentimeter right hepatic dome hypodensity which cannot be fully characterized. Gallbladder and bile ducts: Unremarkable. No calcified stones. No ductal dilation. Pancreas: Unremarkable. No ductal dilation. Spleen: Unremarkable. No splenomegaly. Adrenals: Unremarkable. No mass. Kidneys and ureters: Minimal perinephric stranding on the right. No calculi. No hydronephrosis. Stomach and bowel: Moderate stool in the proximal to mid large bowel. No obstruction. No mucosal thickening. PELVIS: Appendix: Normal caliber appendix. No findings to suggest acute appendicitis. Bladder: Mild to moderate urinary bladder wall thickening. Infiltrative changes in the perivesical fat. No stones. Reproductive: 1.9 cm left ovarian cyst. The uterus and right ovary are unremarkable as visualized. ABDOMEN and PELVIS: Intraperitoneal space: Unremarkable. No free air. No significant fluid collection. Bones/joints: Multilevel spondylosis. No acute fracture. No dislocation. Soft tissues: Unremarkable. Vasculature: Unremarkable. No abdominal aortic aneurysm. Lymph nodes: Unremarkable. No enlarged lymph nodes. IMPRESSION: 1. Findings suggestive of cystitis. Minimal perinephric stranding on the right, possible pyelonephritis. 2. A 1.9 cm left ovarian cyst. No follow-up imaging is recommended. Reference: JACR 2019 3. Other findings as above. Electronically signed by: Socrates Wills MD. 19:01 Differential diagnosis: viral Infection, bacterial infection, URI, bronchitis, sp4 pneumonia UTI, gastroenteritis. Data reviewed: vital signs, nurses notes, lab test result(s), radiologic studies, CT scan, plain films. Consideration of Admission/Observation Patient was admitted/placed on observation. Escalation of care including admission/observation considered. Management of patient was discussed with the following: Hospitalist: Admit Service . 09/13 00:54 Order name: CBC with Diff; Complete Time: 03:22 sp4 12/01 00:54 Order name: CMP; Complete Time: 03:22 sp4 09/13 00:54 Order name: Lipase; Complete Time: 03:22 sp4 09/13 01:04 Order name: CRP; Complete Time: 03:22 sp4 09/13 01:04 Order name: Blood Culture Adult (2) sp4 09/13 03:23 Order name: Urinalysis W/Microscopic; Complete Time: 04:44 sp4 09/13 04:45 Order name: Influenza Screen (a \T\ B); Complete Time: 05:58 sp4 09/13 05:42 Order name: Urinalysis w/ reflexes EDMS 09/13 05:43 Order name: Vancomycin Level Trough EDMS 09/13 00:54 Order name: CT Abd/Pelvis - Without Contrast; Complete Time: 19:02 sp4 09/13 04:46 Order name: Chest Single View XRAY; Complete Time: 19:02 sp4 09/13 00:54 Order name: IV Saline Lock; Complete Time: 02:22 sp4 09/13 00:54 Order name: Labs collected and sent; Complete Time: 02:22 sp4 Administered Medications: 03:00 Drug: morphine IVP or IV 4 mg IVP once over 4 mins Route: IVP; Infused Over: 4 mins; dd2 Site: left antecubital; 03:15 Follow up: Response: No adverse reaction dd2 03:00 Drug: NS 0.9% IV 1000 ml IV at 1 bolus Per protocol; to be given as a bolus over 60 dd2 minutes Route: IV; Rate: 1 bolus; Site: left antecubital; 03:15 Follow up: Response: No adverse reaction dd2 04:00 Follow up: IV Status: Completed infusion; IV Intake: 1000ml dd2 03:00 Drug: Acetaminophen PO 1000 mg PO once Route: PO; dd2 03:30 Follow up: Response: No adverse reaction dd2 03:00 Drug: Ketorolac IVP 30 mg IVP once Route: IVP; Site: left antecubital; dd2 03:15 Follow up: Response: No adverse reaction dd2 03:00 Drug: Rocephin - Rocephin (cefTRIAXone) IVPB 1 grams IVPB once over 30 mins; (mix in 50 dd2 mL NS) Route: IVPB; Infused Over: 30 mins; Site: left antecubital; 03:15 Follow up: Response: No adverse reaction dd2 03:30 Follow up: IV Status: Completed infusion; IV Intake: 60ml dd2 03:00 Drug: NS 0.9% IV 1000 ml IV at 1 bolus Per protocol; to be given as a bolus over 60 dd2 minutes Route: IV; Rate: 1 bolus; Site: left antecubital; 03:15 Follow up: Response: No adverse reaction dd2 04:00 Follow up: IV Status: Completed infusion; IV Intake: 1000ml dd2 03:37 Drug: metroNIDAZOLE IVPB 500 mg 100 ml IVPB at 200 ml/hr once over 30 mins Volume: 100 dd2 ml; Route: IVPB; Rate: 200 ml/hr; Infused Over: 30 mins; Site: left antecubital; 03:52 Follow up: Response: No adverse reaction dd2 07:20 Follow up: Response: No adverse reaction; IV Status: Completed infusion; IV Intake: ko1 100ml 05:33 Drug: vancoMYCIN IVPB 1.5 grams IVPB at calculated rate once Route: IVPB; Rate: dd2 calculated rate; Site: right antecubital; 05:48 Follow up: Response: No adverse reaction dd2 07:19 Follow up: Response: No adverse reaction; IV Status: Infusion continued upon admission ko1 07:50 Follow up: Response: No adverse reaction; IV Status: Completed infusion; IV Intake: ko1 250ml 05:33 Drug: NS 0.9% IV 1000 ml IV at 1 bolus Per protocol; to be given as a bolus over 60 dd2 minutes Route: IV; Rate: 1 bolus; Site: right antecubital; 05:48 Follow up: Response: No adverse reaction dd2 07:20 Follow up: Response: No adverse reaction; IV Status: Completed infusion; IV Intake: ko1 1000ml 05:33 Drug: D5-NS IV 1000 ml IV at 125 ml/hr continuous Route: IV; Rate: 125 ml/hr; Site: dd2 right antecubital; 05:48 Follow up: Response: No adverse reaction dd2 07:19 Follow up: Response: No adverse reaction; IV Status: Infusion continued upon admission ko1 05:34 Not Given (Physician Discretion): morphineor iv 4 mg IVP once over 4 mins dd2 05:37 Not Given (Physician Discretion): [id number] grams 100 ml IVPB once; (Note: Albumin 25% dd2 concentration) Disposition: 19:03 Chart complete. sp4 Disposition Summary: 09/13/24 06:38 Hospitalization Ordered Notes: Hospitalization Status: Inpatient Admission lg3 Provider: Brigid Kirk lg3 Location: Telemetry/MedSurg (Inpatient) lg3 Condition: Stable lg3 Bed/Room Type: Standard 3 Room Assignment: 402(09/13/24 07:57) sp Diagnosis - Pyelonephritis acute lg3 - Other specified sepsis lg3 Forms: - Medication Reconciliation Form lg3 - SBAR form lg3 - Leadership Thank You Letter lg3 Signatures: Dispatcher [employer] EDMS Micki Frost sp Ana David RN RN lg3 Jayesh Aldrich MD MD sp4 TIRSO LEE RN RN dd2 Khushbu Joya RN ko1 Corrections: (The following items were deleted from the chart) 01:04 01:04 C-REACTIVE PROTEIN+C.LAB.BRZ ordered. EDMS EDMS 01:05 01:04 BLOOD CULTURE*+BA.LAB.BRZ ordered. EDMS EDMS 04:45 04:45 Influenza Screen (A \T\ B)+BA.LAB.BRZ ordered. EDMS EDMS 07:57 06:38 206 lg3 sp
--- NOTE | 2024-09-13 06:39 | ER ---
Nurse's Notes [facility] Name: Alisha Cleveland Age: 48 yrs Sex: Female : 1975 Arrival Date: 09/13/2024 Time: 00:25 Bed 16 Private MD: Diagnosis: Pyelonephritis acute;Other specified sepsis Presentation: 09/13 02:03 Chief complaint: Patient states: PAIN AND BURNING WITH URINATION. PAIN IN LOWER ABDOMEN dd2 AND RT LOWER BACK X3 DAYS. Coronavirus screen: At this time, the client does not indicate any symptoms associated with coronavirus-19. Ebola Screen: No symptoms or risks identified at this time. Initial Sepsis Screen: Does the patient meet any 2 criteria? No. Patient's initial sepsis screen is negative. Does the patient have a suspected source of infection? No. Patient's initial sepsis screen is negative. Risk Assessment: Do you want to hurt yourself or someone else? Patient reports no desire to harm self or others. Onset of symptoms is unknown. 02:03 Method Of Arrival: Ambulatory dd2 02:03 Acuity: TEVIN 3 dd2 Triage Assessment: 02:03 General: Appears uncomfortable, Behavior is calm, cooperative, appropriate for age. dd2 Pain: Complains of pain in right low back and suprapubic area Pain currently is 7 out of 10 on a pain scale. EENT: No deficits noted. No signs and/or symptoms were reported regarding the EENT system. Neuro: Level of Consciousness is awake, alert, obeys commands, Oriented to person, place, time, situation, Appropriate for age. Cardiovascular: No deficits noted. Reports Patient's skin is warm and dry. Respiratory: Airway is patent Respiratory effort is even, unlabored, Respiratory pattern is regular, symmetrical. GI: Abdomen is non-distended, Reports nausea. : Reports burning with urination, cramping, in right flank(s) lower back pain in right in suprapubic area flank(s), lower quadrant(s). Derm: No deficits noted. No signs and/or symptoms reported regarding the dermatologic system. Musculoskeletal: No deficits noted. No signs and/or symptoms reported regarding the musculoskeletal system. Circulation, motion, and sensation intact. Range of motion: intact in all extremities. 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 - Infectious Disease History:: Denies. - Social history:: Smoking status: Patient denies any tobacco usage or history of. - Family history:: not pertinent. Screenin:45 [facility] ED Fall Risk Assessment (Adult) History of falling in the last 3 months, dd2 including since admission No falls in past 3 months (0 pts) Confusion or Disorientation No (0 pts) Intoxicated or Sedated No (0 pts) Impaired Gait No (0 pts) Mobility Assist Device Used No (0 pt) Altered Elimination No (0 pt) Score/Fall Risk Level 0 - 2 = Low Risk Oriented to surroundings, Maintained a safe environment, Educated pt \T\ family on fall prevention, incl call for assistance when getting out of bed, Assessed \T\ reinforced patient's understanding of fall precautions, Hourly rounding (assess needs \T\ fall precautionary measures) done. Abuse screen: Denies threats or abuse. Nutritional screening: No deficits noted. Tuberculosis screening: No symptoms or risk factors identified. Assessment: 02:45 Reassessment: SEE TRIAGE ASSESSMENT FOR FULL ASSESSMENT. dd2 Vital Signs: 02:03 BP 113 / 55; Pulse 101; Resp 16; Temp 99.7(O); Pulse Ox 98% on R/A; Weight 74.84 kg; dd2 04:31 BP 94 / 46; Pulse 87; Resp 15; Temp 98.8(O); Pulse Ox 99% on R/A; dd2 05:19 BP 116 / 68; Pulse 89; Resp 16; Pulse Ox 98% on R/A; dd2 06:37 BP 101 / 60; Pulse 92; Resp 16; Pulse Ox 98% on R/A; dd2 07:15 BP 101 / 60; Pulse 84; Resp 16; Pulse Ox 99% ; ko1 [place] Coma Score: 02:45 Eye Response: spontaneous(4). Motor Response: obeys commands(6). Verbal Response: dd2 oriented(5). Total: 15. 19:01 Eye Response: spontaneous(4). Motor Response: obeys commands(6). Verbal Response: sp4 oriented(5). Total: 15. ED Course: 00:29 Patient arrived in ED. jj6 00:50 Jayesh Aldrich MD is Attending Physician. sp4 01:28 CT Abd/Pelvis - Without Contrast In Process Unspecified. EDMS 01:51 TIRSO LEE, MIRIAN is Primary Nurse. dd2 02:03 Arm band placed on right wrist. Patient placed in an exam room, on a stretcher, on dd2 pulse oximetry. 02:19 Initial lab(s) drawn, by me, sent to lab. First set of blood cultures drawn. dd2 02:29 No provider procedures requiring assistance completed. Inserted saline lock: 20 gauge dd2 in left antecubital area, using aseptic technique. Blood collected. Flushed with 10 mL NS. 02:29 Patient maintains SpO2 saturation greater than 95% on room air. dd2 02:45 Patient has correct armband on for positive identification. Bed in low position. Call dd2 light in reach. Side rails up X 1. Provided Education on: MEDICATION, CALL LIGHT, LABS. Client placed on continuous cardiac and pulse oximetry monitoring. NIBP monitoring applied. Door closed. Noise minimized. Warm blanket given. Pillow given. Verbal reassurance given. 03:17 Triage completed. dd2 05:22 Chest Single View XRAY In Process Unspecified. EDMS 06:36 Brigid Kirk MD is Hospitalizing Provider. lg3 07:17 Patient admitted, IV remains in place. ko1 Administered Medications: 03:00 Drug: morphine IVP or IV 4 mg IVP once over 4 mins Route: IVP; Infused Over: 4 mins; dd2 Site: left antecubital; 03:15 Follow up: Response: No adverse reaction dd2 03:00 Drug: NS 0.9% IV 1000 ml IV at 1 bolus Per protocol; to be given as a bolus over 60 dd2 minutes Route: IV; Rate: 1 bolus; Site: left antecubital; 03:15 Follow up: Response: No adverse reaction dd2 04:00 Follow up: IV Status: Completed infusion; IV Intake: 1000ml dd2 03:00 Drug: Acetaminophen PO 1000 mg PO once Route: PO; dd2 03:30 Follow up: Response: No adverse reaction dd2 03:00 Drug: Ketorolac IVP 30 mg IVP once Route: IVP; Site: left antecubital; dd2 03:15 Follow up: Response: No adverse reaction dd2 03:00 Drug: Rocephin - Rocephin (cefTRIAXone) IVPB 1 grams IVPB once over 30 mins; (mix in 50 dd2 mL NS) Route: IVPB; Infused Over: 30 mins; Site: left antecubital; 03:15 Follow up: Response: No adverse reaction dd2 03:30 Follow up: IV Status: Completed infusion; IV Intake: 60ml dd2 03:00 Drug: NS 0.9% IV 1000 ml IV at 1 bolus Per protocol; to be given as a bolus over 60 dd2 minutes Route: IV; Rate: 1 bolus; Site: left antecubital; 03:15 Follow up: Response: No adverse reaction dd2 04:00 Follow up: IV Status: Completed infusion; IV Intake: 1000ml dd2 03:37 Drug: metroNIDAZOLE IVPB 500 mg 100 ml IVPB at 200 ml/hr once over 30 mins Volume: 100 dd2 ml; Route: IVPB; Rate: 200 ml/hr; Infused Over: 30 mins; Site: left antecubital; 03:52 Follow up: Response: No adverse reaction dd2 07:20 Follow up: Response: No adverse reaction; IV Status: Completed infusion; IV Intake: ko1 100ml 05:33 Drug: vancoMYCIN IVPB 1.5 grams IVPB at calculated rate once Route: IVPB; Rate: dd2 calculated rate; Site: right antecubital; 05:48 Follow up: Response: No adverse reaction dd2 07:19 Follow up: Response: No adverse reaction; IV Status: Infusion continued upon admission ko1 07:50 Follow up: Response: No adverse reaction; IV Status: Completed infusion; IV Intake: ko1 250ml 05:33 Drug: NS 0.9% IV 1000 ml IV at 1 bolus Per protocol; to be given as a bolus over 60 dd2 minutes Route: IV; Rate: 1 bolus; Site: right antecubital; 05:48 Follow up: Response: No adverse reaction dd2 07:20 Follow up: Response: No adverse reaction; IV Status: Completed infusion; IV Intake: ko1 1000ml 05:33 Drug: D5-NS IV 1000 ml IV at 125 ml/hr continuous Route: IV; Rate: 125 ml/hr; Site: dd2 right antecubital; 05:48 Follow up: Response: No adverse reaction dd2 07:19 Follow up: Response: No adverse reaction; IV Status: Infusion continued upon admission ko1 05:34 Not Given (Physician Discretion): morphineor iv 4 mg IVP once over 4 mins dd2 05:37 Not Given (Physician Discretion): [id number] grams 100 ml IVPB once; (Note: Albumin 25% dd2 concentration) Medication: 02:45 VIS not applicable for this client. dd2 Intake: 03:30 IV: 60ml; Total: 60ml. dd2 04:00 IV: 1000ml; Total: 1060ml. dd2 04:00 IV: 1000ml; Total: 2060ml. dd2 07:20 IV: 1000ml; Total: 3060ml. ko1 07:20 IV: 100ml; Total: 3160ml. ko1 07:50 IV: 250ml; Total: 3410ml. ko1 Outcome: 06:38 Decision to Hospitalize by Provider. lg3 07:16 Admitted to Med/surg accompanied by tech, via wheelchair, room 206, with chart, ko1 07:16 Condition: stable 07:16 Instructed on the need for admit, 08:45 Patient left the ED. ko1 Signatures: Dispatcher [employer] EDMS Ana David RN RN lg3 Dora [id number] Khushbu Joya RN RN ko1 Jayesh Aldrich MD MD sp4 TIRSO LEE RN RN dd2 Corrections: (The following items were deleted from the chart) 03:25 03:17 General: Appears uncomfortable, Behavior is calm, cooperative, appropriate for dd2 age, dd2 03:25 03:17 Pain: Complains of pain in right low back and suprapubic area Pain currently is 7 dd2 out of 10 on a pain scale. dd2 03:25 03:17 EENT: No deficits noted. No signs and/or symptoms were reported regarding the dd2 EENT system. dd2 03:25 03:17 Neuro: Level of Consciousness is awake, alert, obeys commands, Oriented to dd2 person, place, time, situation, Appropriate for age dd2 03:25 03:17 Cardiovascular: No deficits noted. Reports Patient's skin is warm and dry. dd2 dd2 03:25 03:17 Respiratory: Airway is patent Respiratory effort is even, unlabored, Respiratory dd2 pattern is regular, symmetrical, dd2 03:17 GI: Abdomen is non-distended, Reports nausea, dd2 dd2 03:17 : Reports burning with urination, cramping, in right flank(s) lower back pain dd2 in right in suprapubic area flank(s), lower quadrant(s) dd2 03:17 Derm: No deficits noted. No signs and/or symptoms reported regarding the dd2 dermatologic system. dd2 03:17 Musculoskeletal: No deficits noted. No signs and/or symptoms reported regarding dd2 the musculoskeletal system. Circulation, motion, and sensation intact. Range of motion: intact in all extremities, dd2 03:17 Arm band placed on right wrist. Patient placed in an exam room, on a stretcher, dd2 on pulse oximetry, dd2
--- NOTE | 2024-09-13 06:42 | RAD REPORT ---
EXAM: XR Chest, 1 View CLINICAL HISTORY: The patient is 48 years old and is Female; Chest pain. TECHNIQUE: Single view of the chest. COMPARISON: No relevant prior studies available. FINDINGS: Lungs: No pulmonary vascular congestion or consolidation. Pleural space: Unremarkable. No pneumothorax. Heart: Unremarkable. No cardiomegaly. Mediastinum: Unremarkable. Bones/joints: No acute fracture visualized. Upper abdomen: No free air in the visualized upper abdomen. IMPRESSION: No acute cardiopulmonary process identified. Electronically signed by: Dianne Nelson MD 09/13/2024 06:32 AM [facility] Due to temporary technical issues with the PACS/[employer] reporting system, reports are being angelic d by the in-house radiologist without review as a courtesy to ensure prompt reporting the interpreting radiologist is fully responsible for the content of the report. Transcribed Date/Time: 09/13/2024 6:41 AM
[2024-09-13] MEDS: NA CHLORIDE 0.9% 1,000 ML IV SCH (09:11)
[2024-09-13] MEDS: ENOXAPARIN 40 MG/0.4 ML SQ SCH (09:11)
[2024-09-13] MEDS: ONDANSETRON 4 MG/2 ML VIAL IV PRN (12:17)
[2024-09-13] MEDS: ACETAMINOPHEN 325 MG TABLET PO PRN (12:17)
[2024-09-13] MEDS: KETOROLAC 30 MG/ML INJ IV ONE (12:36)
[2024-09-13] MEDS: MORPHINE 2 MG/ML SYR IV PRN (17:07)
--- NOTE | 2024-09-14 01:43 | P.PN ---
Date of Service: 09/13/24 Subjective Patient denies any new complaints. Patient still having some flank tenderness. Pain poorly controlled. Continue with IV fluids and IV antibiotic therapy. Physical Examination - Vital Signs Reviewed - Physical Exam General: Alert, Oriented x3 Respiratory: Clear to auscultation bilaterally Cardiovascular: No edema, No gallops, No rubs, No murmurs, Other (tachycardic, rate of 101) Gastrointestinal: Normal bowel sounds, Non-distended, Tenderness (rlq tenderness with radiation to back) Musculoskeletal: No swelling, No erythema, No warmth Neurological: No focal deficits Assessment and Plan - Problems (Diagnosis) (1) Pyelonephritis Current Visit: Yes Status: Acute (2) Encounter for smoking cessation counseling Current Visit: Yes Status: Acute - Plan Continue with plan of care as mentioned below 1. Acute pyelonephritis; continue with IV antibiotics and IV fluids. Continue with pain control. Cultures pending. Out of bed and ambulate. Continue with antiemetics as well. Continue with antipyretics. 2. History of tobacco use; counseled regarding smoking cessation: Agreeable to proceed with patch - Advance Directives Does patient have a Living Will: No Does patient have a Durable POA for Healthcare: No
[2024-09-14] MEDS: CEFTRIAXONE 1,000 MG in NA CHLORIDE 0.9% 50 ML IVPB ONE (07:58)
--- NOTE | 2024-09-14 10:55 | P.PN ---
Subjective Date of Service: 09/14/24 Chief Complaint: pyelonephritis Subjective: No new changes She has a fever up to 101 Fahrenheit last night. Patient reports that she is feeling sick, but no rigor or chill, continue to have right flank pain radiating to the right lower quadrant, her dysuria has resolved, no problems urinating, denied any hematuria, she report no admission in the hospital or IV antibiotics oral history of multidrug-resistant organism in urine in the past 3 months, Review of Systems Other: Consitutional; fever(-), chills (-), rigor(-), night sweat(-), unintentional weight loss(-) HEENT; epistaxis (-), otorrhea (-), otalgia (-) Respiratory; shortness of breath (-), wheezing (-), cough (-), sputum (-), pleuritic chest pain (-) Cardiovascular; chest pain (-), peripheral edema (-), paroxysmal nocturnal dyspnea (-), orthopnea (-) Gastrointestinal; nausea (-), vomiting (-), abdominal pain (-), diarrhea (-), constipation (-), melena (-), hematochezia (-) Urinary; urinary frequency (-), dysuria (-), urgency (-), flank pain (+), gross hematuria (-) Skin; rash (-), pruritus (-) [employer]; headache (-), paresthesia (-), numbness (-), paralysis (-), Physical Examination - Vital Signs Temperature: 99.0 F Blood Pressure: 104/63 Pulse: 81 Respirations: 20 Pulse Ox (%): 99 - Physical Exam Other Physical/Emotional Findings: - Physical Exam. General: Not acutely ill looking, in no apparent distress,. HEENT: Normocephalic, atraumatic,. Neck: Supple, without JVD or goiter or thyroid mass. Respiratory: Normal breathing effort, clear to auscultation bilaterally, no crackles no wheezing or rhonchi. Cardiovascular: Regular rate and rhythm, S1, S2 normal, no murmur no gallop. Gastrointestinal: Normal bowel sounds, nondistended, nontender, No ascites, , No masses, no hepatosplenomegaly. Musculoskeletal: No clubbing, No peripheral edema, no CVA tenderness bilaterally. Integumentary: No rashes. Lymphatics: No axilla or cervical lymphadenopathy. Neurology; alert awake oriented x3, no focal neurologic deficit - Studies Microbiology Data (last 24 hrs): 09/13/24 04:57 Nasopharnyx Influenza Type A Antigen Screen - Final 09/13/24 04:57 Nasopharnyx Influenza Type B Antigen Screen - Final Assessment And Plan - Plan This is 48 years old female patient with no past medical history except prediabetes on GLP-1 receptor agonist, obesity who presented to the emergency room for evaluation of fever, progressive dysuria and right-sided flank pain and admitted on the general medical floor #1 acute right pyelonephritis with sepsis Fever of 101, mild leukocytosis of 13.2, normoglycemia, normal renal function test CT of the abdomen and pelvis suggestive of early stage of right acute pyelonephritis and cystitis, UA showed no UTI, I will order urine culture, will start her on ceftriaxone 1 g every 24 hour as patient has no risk of MDR, preliminary blood culture no growth to date. Pain controlled with ketorolac as needed, continue IV hydration Disposition; plan to discharge home in 2 or 3 days depending on clinical response.
[2024-09-15 08:13] LABS: Magnesium 2.2 mg/dL (1.6-2.4); Phosphorus 2.1 mg/dL (2.5-4.9); Potassium 3.9 mEq/L (3.5-5.1)
[2024-09-15] MEDS: CEFTRIAXONE 1,000 MG in NA CHLORIDE 0.9% 50 ML IVPB SCH (10:01)
--- NOTE | 2024-09-15 13:41 | P.PN ---
Subjective Date of Service: 09/15/24 Chief Complaint: pyelonephritis Subjective: Improving Patient has no fever last night, however she is complaining of persistent right flank pain last night requiring IV morphine, urinating well without any urinary symptom, tolerating oral diet with no nausea and vomiting. Review of Systems Other: Consitutional; fever(-), chills (-), rigor(-), night sweat(-), unintentional weight loss(-) HEENT; diplopia (-), rhinorrhea (-), epistaxis (-), otorrhea (-), otalgia (-) Respiratory; shortness of breath (-), wheezing (-), cough (-), sputum (-), pleuritic chest pain (-) Cardiovascular; chest pain (-), peripheral edema (-), paroxysmal nocturnal dyspnea (-), orthopnea (-) Gastrointestinal; nausea (-), vomiting (-), abdominal pain (-), diarrhea (-), constipation (-), melena (-), hematochezia (-) Urinary; urinary frequency (-), dysuria (-), urgency (-), flank pain (+), gross hematuria (-), incontinence (-) Skin; rash (-), pruritus (-) 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 General: Not acutely ill looking, in no apparent distress,. HEENT: Normocephalic, atraumatic,. Neck: Supple, without JVD or goiter or thyroid mass. Respiratory: Normal breathing effort, clear to auscultation bilaterally, no crackles no wheezing or rhonchi. Cardiovascular: Regular rate and rhythm, S1, S2 normal, no murmur no gallop. Gastrointestinal: Normal bowel sounds, nondistended, nontender, No ascites, , No masses, no hepatosplenomegaly. Musculoskeletal: No clubbing, No peripheral edema, right CVA tenderness. Integumentary: No rashes. Lymphatics: No axilla or cervical lymphadenopathy. Neurology; alert awake oriented x3, no focal neurologic deficit Assessment And Plan - Plan This is 48 years old female patient with no past medical history except prediabetes on GLP-1 receptor agonist, obesity who presented to the emergency room for evaluation of fever, progressive dysuria and right-sided flank pain and admitted on the general medical floor #1 acute right pyelonephritis with sepsis Afebrile last night,, mild leukocytosis of 13.2, normoglycemia, normal renal function test CT of the abdomen and pelvis suggestive of early stage of right acute pyelonephritis and cystitis, UA showed no UTI, urine culture primary report no growth, will keep her on ceftriaxone 1 g every 24 hour as patient has no risk of MDR, preliminary blood culture no growth to date. Pain controlled with IV morphine as needed, continue IV hydration, I will order follow-up CBC BMP tomorrow morning Disposition; plan to discharge home in 1 or 2 days depending on clinical response.
[2024-09-16 07:12] LABS: Absolute Basophils 0.1 K/uL (0-0.5); Absolute Eosinophils 0.2 K/uL (0-0.5); Absolute Lymphocytes (CBC) 1.9 K/uL (0.7-4.9); Absolute Monocytes 0.6 K/uL (0.1-1.3); Absolute Neutrophil 4.2 K/uL (1.8-8.0); Basophils % 0.9 % (0-1.3); Hematocrit 28.3 % (36.0-45.0); Hemoglobin 9.1 g/dL (12.0-15.0); Lymphocytes % 27.5 % (15.3-44.8); MCH 26.2 pg (27.0-35.0); MCHC 32.1 g/dL (32.0-36.0); MCV 81.7 fL (80-100); MPV 8.7 fL (7.6-11.3); Monocytes % 8.5 % (3.3-12.3); Neutrophils % 60.1 % (41.7-73.7); Platelets 225 thou/uL (152-406); RBC Red Blood Cell Count 3.46 M/uL (3.86-4.86); Red Cell Distribution Width 15.9 % (12.1-15.2)
[2024-09-16 07:27] LABS: Anion Gap 6.7 mEq/L (5.0-15.0); Potassium 3.7 mEq/L (3.5-5.1)
[2024-09-16] MEDS: POTASS/SODIUM PHOSPHATE 1 PKT POWD.PACK PO SCH (08:57)
[2024-09-16] MEDS: POTASSIUM CL SA 10 MEQ TAB PO ONE (08:57)
[2024-09-16 10:36] VITALS: BMI 30.7
[2024-09-16] MEDS: KETOROLAC 10 MG TAB PO PRN (11:00)
--- NOTE | 2024-09-16 12:28 | RAD REPORT ---
EXAMINATION: US RETROPERITONEUM CLINICAL INDICATION: [facility] MA[facility] Persistent right flank pain Being treated for acute pyelonephritis TECHNIQUE: Real-time ultrasonography of the abdomen was performed. COMPARISON: No prior exam. FINDINGS: RIGHT KIDNEY: Right renal length measurement: 11.8 cm. Transcortical ill-defined interpolar mildly hy perechoic heterogeneous rounded mass measuring 1.4 x 1.5 x 1.4 cm. No hydronephrosis. Preserved corticomedullary differentiation otherwise. No echogenic calculi. LEFT KIDNEY: Left renal length measurement: 12.5 cm. Normal in echogenicity and size. No calculus, so lid mass or hydronephrosis. URINARY BLADDER: Normal. ADDITIONAL FINDINGS: Diffuse parenchymal hyperechogenicity of the included aspects of the liver sugge sting steatosis. IMPRESSION: Parenchymal rounded 1.5 cm lesion along the right renal interpolar region, could relate to focal pyel onephritis versus a solid mass. Additional evaluation by renal mass protocol CT or MRI is recommended following resolution of any acute symptoms. Diffuse hepatic steatosis.
--- NOTE | 2024-09-16 13:34 | P.PN ---
Subjective Date of Service: 09/16/24 Chief Complaint: pyelonephritis Patient has no fever for the past 48 hours, however she is complaining of persistent right flank pain radiating to the right upper quadrant, urinating well without any urinary symptom, tolerating oral diet with no nausea and vomiting. Review of Systems Other: Consitutional; fever(-), chills (-), rigor(-), night sweat(-), unintentional weight loss(-) HEENT; diplopia (-), rhinorrhea (-), epistaxis (-), otorrhea (-), otalgia (-) Respiratory; shortness of breath (-), wheezing (-), cough (-), sputum (-), pleuritic chest pain (-) Cardiovascular; chest pain (-), peripheral edema (-), paroxysmal nocturnal dys pnea (-), orthopnea (-) Gastrointestinal; nausea (-), vomiting (-), abdominal pain (-), diarrhea (-), constipation (-), melena (-), hematochezia (-) Urinary; urinary frequency (-), dysuria (-), urgency (-), flank pain (+), gross hematuria (-), incontinence (-) Skin; rash (-), pruritus (-) [employer]ATION; headache (-), paresthesia (-), numbness (-), paralysis (-) Physical Examination - Vital Signs Temperature: 98.1 F Blood Pressure: 115/70 Pulse: 80 Respirations: 14 Pulse Ox (%): 99 - Physical Exam Other Physical/Emotional Findings: - Physical Exam. General: Not acutely ill looking, in no apparent distress,. HEENT: Normocephalic, atraumatic,. Neck: Supple, without JVD or goiter or thyroid mass. Respiratory: Normal breathing effort, clear to auscultation bilaterally, no crackles no wheezing or rhonchi. Cardiovascular: Regular rate and rhythm, S1, S2 normal, no murmur no gallop. Gastrointestinal: Normal bowel sounds, nondistended, nontender, No ascites, , No masses, no hepatosplenomegaly. Musculoskeletal: No clubbing, No peripheral edema, right CVA tenderness. Integumentary: No rashes. Lymphatics: No axilla or cervical lymphadenopathy. Neurology; alert awake oriented x3, no focal neurologic deficit Assessment And Plan - Plan This is 48 years old female patient with no past medical history except prediabetes on GLP-1 receptor agonist, obesity who presented to the emergency room for evaluation of fever, progressive dysuria and right-sided flank pain and admitted on the general medical floor #1 acute right pyelonephritis with sepsis Clinically improving except persistent right flank pain, afebrile for the past 48 hours,, mild leukocytosis resolved, normoglycemia, renal function test remain normal CT of the abdomen and pelvis suggestive of early stage of right acute pyelonephritis and cystitis, UA showed no UTI, urine culture final report no growth, preliminary blood culture no growth to date, will keep her on ceftriaxone 1 g every 24 hour as patient has no risk of MDR, today is day 3 . I will order ultrasound of the right kidney to rule out any renal abscess or hydronephrosis, her pain seems to be superficial so I will try the lidocaine patch, add ketorolac p.o. in addition to IV morphine Disposition; plan to discharge home with oral antibiotics once her right flank pain is reasonably controlled with oral analgesics
[2024-09-17 06:22] LABS: Albumin 2.4 g/dL (3.4-5.0); Albumin/Globulin Ratio 0.8 (1.1-1.8); Anion Gap 7.4 mEq/L (5.0-15.0); Bilirubin Total 0.2 mg/dL (0.2-1.0); Globulin 3.2 g/dL (2.3-3.5); Potassium 3.4 mEq/L (3.5-5.1); Protein, Total 5.6 g/dL (6.4-8.2)
[2024-09-17 08:19] VITALS: BP 114/66; TEMP 98.8
[2024-09-17] MEDS: POTASSIUM CL SA 10 MEQ TAB PO ONE (08:21)
[2024-09-17] MEDS: LIDOCAINE 4% PATCH TOP SCH (08:22)
[2024-09-17 09:12] VITALS: O2SAT 99
--- NOTE | 2024-09-17 09:46 | P.DS ---
Admission Date: 09/13/24 Discharge Date: 09/17/24 Disposition: ROUTINE DISCHARGE Discharge Condition: GOOD Reason for Admission: pyelonephritis Brief History of Present Illness: This is 48 years old female patient with no past medical history except prediabetes on GLP-1 receptor agonist, obesity who presented to the emergency room for evaluation of fever, progressive dysuria and right-sided flank pain and admitted on the general medical floor Hospital Course: Patient responded to empiric antibiotic with ceftriaxone and IV fluid well except for persistent right flank pain. Ultrasound of the right flank was performed and consistent with acute pyelonephritis no sign of perinephric abscess or hydronephrosis. Patient was discharged home with 750 mg of levofloxacin for 3 more days to complete 7-day course of antibiotics and [place] 5/325 #10 as needed for right flank pain. She is follow-up with her PCP after discharge. #1 acute right pyelonephritis with sepsis Clinically improving except persistent right flank pain, afebrile for the past 48 hours,, mild leukocytosis resolved, renal function test remains normal CT of the abdomen and pelvis suggestive of early stage of right acute pyelonephritis and cystitis, UA showed no UTI, urine culture final report no growth, preliminary blood culture no growth to date, #2 dilutional anemia No clinical bleeding, hemoglobin 9 from 11, no transfusion given Vital Signs/Physical Exam: Temp Pulse Resp BP Pulse Ox 98.8 F 73 16 114/66 97 09/17/24 08:00 09/17/24 08:00 09/17/24 08:00 09/17/24 08:00 09/17/24 08:00 Other Physical/Emotional Findings: - Physical Exam. General: Not acutely ill looking, in no apparent distress,. HEENT: Normocephalic, atraumatic,. Neck: Supple, without JVD or goiter or thyroid mass. Respiratory: Normal breathing effort, clear to auscultation bilaterally, no crackles no wheezing or rhonchi. Cardiovascular: Regular rate and rhythm, S1, S2 normal, no murmur no gallop. Gastrointestinal: Normal bowel sounds, nondistended, nontender, No ascites, , No masses, no hepatosplenomegaly. Musculoskeletal: No clubbing, No peripheral edema, right CVA tenderness. Integumentary: No rashes. Lymphatics: No axilla or cervical lymphadenopathy. Neurology; alert awake oriented x3, no focal neurologic deficit Laboratory Data at Discharge: WBC 7.00 thou/uL (4.3-10.9) 09/16/24 06:56 Hgb 9.1 g/dL (12.0-15.0) L 09/16/24 06:56 Hct 28.3 % (36.0-45.0) L 09/16/24 06:56 Plt Count 225 thou/uL (152-406) 09/16/24 06:56 Sodium 141 mEq/L (136-145) 09/17/24 05:48 Potassium 3.4 mEq/L (3.5-5.1) L 09/17/24 05:48 BUN 7 mg/dL (7-18) 09/17/24 05:48 Creatinine 0.65 mg/dL (0.55-1.02) 09/17/24 05:48 Glucose 115 mg/dL (74-106) H 09/17/24 05:48 Phosphorus 2.1 mg/dL (2.5-4.9) L 09/15/24 07:50 Magnesium 2.2 mg/dL (1.6-2.4) 09/15/24 07:50 Total Bilirubin 0.2 mg/dL (0.2-1.0) 09/17/24 05:48 AST 14 U/L (15-37) L 09/17/24 05:48 ALT 28 U/L (13-56) 09/17/24 05:48 Alkaline Phosphatase 67 U/L (45-117) 09/17/24 05:48 Lipase 42 U/L (13-75) 09/13/24 02:19 Home Medications: Semaglutide [Ozempic] 2 mg SQ ONCE 09/13/24 Hydrocodone 5/APAP 325 [[place] 5/325] 1 tab PO Q6H PRN #10 tab 09/17/24 New Medications: Hydrocodone 5/APAP 325 [[place] 5/325] 1 tab PO Q6H PRN #10 tab PRN Reason: Pain Followup: Lupe Vu [Primary Care Provider] -
== END 2024-09-17 11:27 | disposition home or self-care (01) | DRG 872 ==
LOC: ER 00:25 → ERHOLD 05:38 → 4TH 08:55
PROVIDERS: ADMIT Hospitalist; ATTEND Internal Medicine
DX: A41.89 Other specified sepsis (principal); N10 Acute pyelonephritis; N83.209 Unspecified ovarian cyst, unspecified side; E66.9 Obesity, unspecified; D64.89 Other specified anemias; F17.200 Nicotine dependence, unspecified, uncomplicated; R73.03 Prediabetes; Z71.6 Tobacco abuse counseling; Z68.30 Body mass index [BMI] 30.0-30.9, adult
CPT/HCPCS: 36415; 71045; 74176; 76775; 80048; 80053; 81001; 83690; 83735; 84100; 84132; 85025; 86140; 87040; 87086; 87088; 87804; 94760; 99285; J0696; J1650; J2003; J2270; J2405; J7030; J7042; J7050